=== PATIENT | female | born 1985 | race Caucasian/White ===

== ENCOUNTER → 2017-05-07 15:06 | Outpatient (CLI) | payer MEDICAID, SELFPAY ==
[2017-05-07 20:05] LABS: Chlamydia Trachomatis by PCR Negative (Negative); Neisserai gonorrhoeae by PCR Negative (Negative); Probe Check PASS; Sample Adequacy Control PASS; Specimen Processing Control PASS
== END ==
PROVIDERS: Family Provider Family Medicine; PCP Family Medicine; Visit Provider Obstetrics & Gynecology
DX: Z11.3 Encounter for screening for infections with a predominantly sexual mode of transmission (principal)
CPT/HCPCS: 87086; 87088; 87491; 87591

== ENCOUNTER 2017-05-08 19:09 | Emergency (ER) | payer MEDICAID, SELFPAY ==
[2017-05-08 19:09] VITALS: BP 131/93; PULSE 94; RESP 16; TEMP 37.1; O2SAT 97; BMI 23.6
--- NOTE | 2017-05-08 20:26 | US_ITS ---
STUDY: RENAL ULTRASOUND - COMPLETE REASON FOR EXAM: Female, 32 years old. Left flank pain and history of stones TECHNIQUE: Ultrasound evaluation of the kidneys was performed with real-time and static manley-scale imaging. COMPARISON: June 15, 2014 CT scan abdomen and pelvis. FINDINGS: RIGHT KIDNEY: Normal location of the right kidney, which is normal in size. The right kidney measures 10.8 x 5.4 x 4.3 cm. There is a normal cortex of the right kidney. The renal cortex measures 0.9 cm. There is no right renal mass or cyst. There is a lower pole calcification measuring 3.5 mm image #8. On image #5 there is a suggestion of punctate stones. There is trace right side pelviectasis. LEFT KIDNEY: Normal location of the left kidney, which is normal in size. The left kidney measures 0.9 cm. There is a normal cortex of the left kidney. The renal cortex measures cm. There is no left renal mass or cyst. There are no left renal calculi. There is no left hydronephrosis. BLADDER: The bladder is empty. US/Kidney and Bladder IMPRESSION: Trace right-sided pelviectasis visualized punctate stone in 3.5 mm stone right kidney. No evidence of left-sided hydronephrosis. Electronically Signed: Kat Meehan MD at 22:40 EST Tel , Service support ,
[2017-05-08 20:33] LABS: Color, Urine Yellow (Yellow); Glucose, Dipstick Normal (Normal); Leukocyte Esterase-Dipstick 25 /ul (Negative); Nitrite-Dipstick Negative (Negative); Occult Blood-Urine 25 /ul (Negative); Protein-Dipstick 30 mg/dl (Negative); Urine Bilirubin Dipstick Negative (Negative); Urine Clarity Cloudy (Clear); Urine Urobilinogen 1 mg/dl (Normal)
[2017-05-08 20:36] LABS: Ketone-Dipstick 150 mg/dl (Negative)
[2017-05-08 20:41] LABS: Mucous, Urine 1+ /hpf (<or=2+)
[2017-05-08 20:42] LABS: Red Blood Cells-Urine 0-5 SEEN /hpf (0-5); White Blood Cells 5-10 SEEN /hpf (0-5)
[2017-05-08 20:43] LABS: Squamous Epithelial Cells - UA 5-10 SEEN /hpf (5-10)
[2017-05-08 20:44] LABS: Bacteria RARE /hpf (None Seen)
[2017-05-08] MEDS: Ondansetron 4 MG/2 ML Vial IV (20:58)
[2017-05-08] MEDS: 0.9% Normal Saline 1,000 ML 999 ML IV (20:58)
[2017-05-08 21:09] LABS: Absolute Lymphocyte Count 1.86 X10^3/ul (0.83-4.51); Absolute Neutrophil Count 12.5 X10^3/uL (2.0-7.7); Basophil# 0.03 X10^3/uL; Basophil% 0.2 % (0-1); Eosinophil# 0.14 X10^3/uL; Eosinophils% 0.9 % (0-5); Hematocrit 41.2 % (37-47); Hemoglobin 13.9 g/dl (12.0-15.0); Lymphocyte # 1.86 X10^3/ul (4.0); Lymphocyte % 11.9 % (19-41); Mean Corp Hgb Conc 33.7 g/gl (32-36); Mean Corpuscular Hgb 31.2 pg (27.0-32.0); Mean Corpuscular Volume 92.6 fL (81-99); Mean Platelet Vol. 10.8 fl (6.2-12.0); Monocyte# 1.11 X10^3/uL; Monocyte% 7.1 % (0-10); Neutrophil # 12.49 X10^3/uL (2.7-7.7); Neutrophil % 79.8 % (47-70); POSITIVE COUNT NO; POSITIVE DIFFERENTIAL NO; POSITIVE MORPHOLOGY NO; Platelet Count 284 K/mm3 (150-450); RBC Distribution Width SD 43.7 fl (35.1-43.9); Red Blood Count 4.45 M/mm3 (4.2-5.4); White Blood Count 15.7 K/mm3 (4.4-11.0)
[2017-05-08 21:21] LABS: Anion Gap 9 (5-15); BUN 11 mg/dL (7-18); BUN/Creat Ratio 18.8 RATIO (10-20); Chloride 107 mmol/L (98-107); Creatinine, Serum 0.59 mg/dL (0.55-1.02); EST Glomerular Filtration Rate 128 mL/min (>60); Est Glom Filt Rate - Afr Amer 155 mL/min (>60); Estimated Creatinine Clearance 145.71 ml/min; Glucose 90 mg/dL (74-106); Potassium 3.6 mmol/L (3.5-5.1); Sodium Level 138 mmol/L (136-145)
[2017-05-08 23:09] VITALS: BP 100/62; PULSE 65; RESP 16
--- NOTE | 2017-05-09 00:10 | ED.VISSUMM ---
- ER Visit Summary Date of Service: 05/09/17 Chief Complaint: Dysuria, urinary frequency History of Present Illness: The patient is a 32 F presenting with dysuria and urinary frequency. This has been ongoing for 5 days. She saw her COMPUTER [employer] SOFTWARE ENGINEER yesterday and was put on Macrobid. She is currently 6 weeks . She denies vaginal bleeding. She has left flank and suprapubic pain. She is AB 3. She has a history of kidney stones and has been seen by Dr. Whitmore. Physical Examination: Vitals are stable. Patient is afebrile. Alert no acute distress. HEENT exam is unremarkable. Lungs are clear and equal bilaterally. Heart is regular rate and rhythm. Abdomen is soft nontender nondistended. No rebound or guarding. Back: mild left CVA tenderness Extremities are unremarkable. Skin is warm and dry. Remainder of exam is unremarkable. Emergency Department Course and Treatment: Patient was given IV fluids, morphine, Zofran. CBC shows a white count of 15.7. Chemistries unremarkable. Urinalysis shows 5-10 white blood cells, 0-5 red blood cells. Urine culture was sent. Her pain is improved following medications. Discussed risk of radiation of CT scan and opted to do a renal ultrasound. This shows a trace right-sided pelviectasis, punctate stone right kidney, no left hydronephrosis. Her pain is mainly in the left flank. Discussed with Dr. Whitmore and Dr. Ortiz. She will be given a prescription for pyridium and advised to continue her antibiotics. She will be seen for outpatient follow-up. She is advised to return to ED if she has any worsening complaints. Disposition: Discharge home Impression: UTI, This note was generated with EPS dictation software. It may contain incorrect words, spelling, and punctuation that were not noted in review of the chart prior to signing ED Disposition - Plan for ED Patient: Chief Complaint: Complaint Instructions: ED UTI Cystitis Female Prescriptions: Phenazopyridine HCl [Pyridium] 200 mg PO BID PRN PRN #10 tablet PRN Reason: Pain Referrals: Maurice Whitmore MD [STAFF PHYSICIAN] - William Ortiz MD [STAFF PHYSICIAN] - Jim Ray MD [Primary Care Provider] -
--- NOTE | 2017-05-09 00:14 | ED.DCSUM_ITS ---
- ER Visit Summary Date of Service: 05/09/17 Chief Complaint: Dysuria, urinary frequency History of Present Illness: The patient is a 32 F presenting with dysuria and urinary frequency. This has been ongoing for 5 days. She saw her SUPER[employer]CH[employer] yesterday and was put on Macrobid. She is currently 6 weeks . She denies vaginal bleeding. She has left flank and suprapubic pain. She is AB 3. She has a history of kidney stones and has been seen by Dr. Whitmore. Physical Examination: Vitals are stable. Patient is afebrile. Alert no acute distress. HEENT exam is unremarkable. Lungs are clear and equal bilaterally. Heart is regular rate and rhythm. Abdomen is soft nontender nondistended. No rebound or guarding. Back: mild left CVA tenderness Extremities are unremarkable. Skin is warm and dry. Remainder of exam is unremarkable. Emergency Department Course and Treatment: Patient was given IV fluids, morphine , Zofran. CBC shows a white count of 15.7. Chemistries unremarkable. Urinalysis shows 5-10 white blood cells, 0-5 red blood cells. Urine culture was sent. Her pain is improved following medications. Discussed risk of radiation of CT scan and opted to do a renal ultrasound. This shows a trace right-sided pelviectasis, punctate stone right kidney, no left hydronephrosis. Her pain is mainly in the left flank. Discussed with Dr. Whitmore and Dr. Ortiz. She will be given a prescription for pyridium and advised to continue her antibiotics. She will be seen for outpatient follow-up. She is advised to return to ED if she has any worsening complaints. Disposition: Discharge home Impression: UTI, This note was generated with Ezetap dictation software. It may contain incorrect words, spelling, and punctuation that were not noted in review of the chart prior to signing ED Disposition - Plan for ED Patient: Chief Complaint: Complaint Instructions: ED UTI Cystitis Female Prescriptions: Phenazopyridine HCl [Pyridium] 200 mg PO BID PRN PRN #10 tablet PRN Reason: Pain Referrals: Maurice Whitmore MD [STAFF PHYSICIAN] - William Ortiz MD [STAFF PHYSICIAN] - Jim Ray MD [Primary Care Provider] -
--- NOTE | 2017-05-09 00:14 | ED.DEP ---
ED Disposition - Plan for ED Patient: Chief Complaint: Complaint Instructions: ED UTI Cystitis Female Prescriptions: Phenazopyridine HCl [Pyridium] 200 mg PO BID PRN PRN #10 tablet PRN Reason: Pain Referrals: Jim Ray MD [Primary Care Provider] - William Ortiz MD [STAFF PHYSICIAN] - Maurice Whitmore MD [STAFF PHYSICIAN] -
[2017-05-09 00:30] VITALS: BP 119/55; PULSE 61; RESP 16
== END 2017-05-09 00:30 | disposition home or self-care (01) ==
LOC: ED 20:02
PROVIDERS: Emergency Provider Emergency Medicine; Family Provider Family Medicine; PCP Family Medicine
DX: O23.41 Unspecified infection of urinary tract in pregnancy, first trimester (principal); O99.331 Smoking (tobacco) complicating pregnancy, first trimester; O26.891 Other specified pregnancy related conditions, first trimester; N20.0 Calculus of kidney; Z87.442 Personal history of urinary calculi; Z3A.01 Less than 8 weeks gestation of pregnancy
CPT/HCPCS: 76770; 80048; 81001; 85025; 87086; 87088; 96361; 96374; 96375; 96376; 99283; A4216; J2405

== ENCOUNTER → 2017-05-27 11:29 | Outpatient (CLI) | payer MEDICAID, SELFPAY ==
[2017-05-27 12:26] LABS: Absolute Neutrophil Count 8.4 X10^3/uL (2.0-7.7); Basophil# 0.02 X10^3/uL; Basophil% 0.2 % (0-1); Eosinophil# 0.09 X10^3/uL; Eosinophils% 0.7 % (0-5); Hematocrit 40.2 % (37-47); Hemoglobin 13.5 g/dl (12.0-15.0); Lymphocyte % 25.1 % (19-41); Mean Corp Hgb Conc 33.6 g/gl (32-36); Mean Corpuscular Volume 92.4 fL (81-99); Mean Platelet Vol. 11.5 fl (6.2-12.0); Monocyte# 0.73 X10^3/uL; Monocyte% 5.9 % (0-10); Neutrophil # 8.41 X10^3/uL (2.7-7.7); Neutrophil % 67.9 % (47-70); Platelet Count 297 K/mm3 (150-450); RBC Distribution Width CV 13.1 % (11.6-14.6); RBC Distribution Width SD 44.4 fl (35.1-43.9); Red Blood Count 4.35 M/mm3 (4.2-5.4); White Blood Count 12.4 K/mm3 (4.4-11.0)
[2017-05-27 12:29] LABS: POSITIVE COUNT NO; POSITIVE DIFFERENTIAL NO; POSITIVE MORPHOLOGY NO
[2017-05-27 12:43] LABS: Thyroid Stim Hormone (TSH) 1.25 uIU/mL (0.358-3.74)
[2017-05-27 12:45] LABS: Color, Urine Yellow (Yellow); Glucose, Dipstick Normal (Normal); Ketone-Dipstick 15 mg/dl (Negative); Leukocyte Esterase-Dipstick Negative /ul (Negative); Nitrite-Dipstick Negative (Negative); Occult Blood-Urine 10 /ul (Negative); Protein-Dipstick Negative (Negative); Specific Gravity, Urine 1.015 (1.002-1.030); Urine Bilirubin Dipstick Negative (Negative); Urine Clarity Cloudy (Clear); Urine Urobilinogen Normal (Normal)
[2017-05-27 12:46] LABS: COTININE Drug Screen Positive (<200 ng/mL)
[2017-05-27 13:22] LABS: HIV - WCH Non-Reactive (Nonreactive); Rubella IgG 181.4 IU/mL
[2017-05-27 14:38] LABS: Amphetamine Urine VISTA NEGATIVE (<1000 ng/mL); Barbiturate Urine VISTA NEGATIVE (< 200 ng/mL); Benzodiazepine Urine VISTA NEGATIVE (< 200 ng/mL); Cocaine Urine VISTA NEGATIVE (< 300 ng/mL); Ecstacy Urine VISTA NEGATIVE (< 500 ng/mL); Methadone Urine VISTA NEGATIVE (< 300 ng/mL); PCP Urine VISTA NEGATIVE (< 25 ng/mL); THC Urine VISTA POSITIVE (< 50 ng/mL); Vista UDS pH Range 8
[2017-05-28 09:27] LABS: HEPATITIS B SURFACE AG Negative (Negative); Hep C Antibodies 0.2 s/co ratio (0.0-0.9)
[2017-05-29 02:54] LABS: Prenatal RPR NONREACTIVE (NONREACTIVE)
== END ==
PROVIDERS: Family Provider Family Medicine; PCP Family Medicine; Visit Provider Obstetrics & Gynecology
DX: Z34.81 Encounter for supervision of other normal pregnancy, first trimester (principal)
CPT/HCPCS: 36415; 80307; 81002; 84443; 85025; 86703; 86762; 86803; 87340

== ENCOUNTER → 2017-10-07 10:48 | Outpatient (CLI) | payer MEDICAID, SELFPAY ==
[2017-10-07 12:09] LABS: Hematocrit 34.2 % (37-47); Hemoglobin 11.2 g/dl (12.0-15.0); Mean Corp Hgb Conc 32.7 g/gl (32-36); Mean Corpuscular Hgb 30.5 pg (27.0-32.0); Mean Corpuscular Volume 93.2 fL (81-99); Mean Platelet Vol. 11.4 fl (6.2-12.0); Platelet Count 334 K/mm3 (150-450); RBC Distribution Width CV 13.2 % (11.6-14.6); RBC Distribution Width SD 44.7 fl (35.1-43.9); Red Blood Count 3.67 M/mm3 (4.2-5.4); White Blood Count 14.9 K/mm3 (4.4-11.0)
[2017-10-07 12:10] LABS: Scan Indicated on CBC? Y/N NO
[2017-10-07 12:12] LABS: Glucose Challenge Gest 1H 50g 164 mg/dL (70-140)
== END ==
PROVIDERS: Visit Provider Obstetrics & Gynecology
DX: Z34.83 Encounter for supervision of other normal pregnancy, third trimester (principal)
CPT/HCPCS: 36415; 82950; 85027

== ENCOUNTER → 2017-10-13 09:36 | Outpatient (CLI) | payer MEDICAID, SELFPAY ==
[2017-10-13 10:57] LABS: Glucose GTT-Gestation. Fasting 80 mg/dL (<105)
[2017-10-13 12:25] LABS: Glucose GTT-Gestational 1 Hr 173 mg/dL (<190)
[2017-10-13 13:25] LABS: Glucose GTT-Gestational 2 Hr 166 mg/dL (<165)
[2017-10-13 14:27] LABS: Glucose GTT-Gestational 3 Hr 119 L (<145)
== END ==
PROVIDERS: Family Provider Family Medicine; PCP Family Medicine; Visit Provider Obstetrics & Gynecology
DX: O24.912 Unspecified diabetes mellitus in pregnancy, second trimester (principal); Z3A.00 Weeks of gestation of pregnancy not specified
CPT/HCPCS: 36415; 82951; 82952

== ENCOUNTER → 2017-12-02 16:11 | Outpatient (CLI) | payer MEDICAID, SELFPAY ==
[2017-12-02 17:29] LABS: Group B Strep DNA By PCR Negative (Negative); Internal Control PASS; Probe Check PASS; Specimen Processing Control PASS
== END ==
PROVIDERS: Visit Provider Obstetrics & Gynecology
DX: Z36.85 Encounter for antenatal screening for Streptococcus B (principal)
CPT/HCPCS: 87081; 87653

== ENCOUNTER 2017-12-17 09:44 | Inpatient (IN) | payer MEDICAID, SELFPAY ==
[2017-12-15 09:29] VITALS: BMI 29.0
--- NOTE | 2017-12-15 09:34 | NURSING ---
Pt takes CBD oil daily for migraines. Chemically related to marijuana
[2017-12-17] VITALS (18 sets, daily range): BP systolic 100–128; BP diastolic 46–74; PULSE 61–93; RESP 14–18; TEMP 36.1–37; O2SAT 95–99; BMI 28.8
[2017-12-17] MEDS: Lactated Ringers 1,000 ML 999 ML IV (10:15)
[2017-12-17 11:06] LABS: Absolute Lymphocyte Count 2.57 X10^3/ul (0.83-4.51); Absolute Neutrophil Count 9.9 X10^3/uL (2.0-7.7); Basophil# 0.04 X10^3/uL; Basophil% 0.3 % (0-1); Eosinophil# 0.18 X10^3/uL; Eosinophils% 1.3 % (0-5); Hematocrit 37.1 % (37-47); Hemoglobin 12.4 g/dl (12.0-15.0); Lymphocyte # 2.57 X10^3/ul (4.0); Lymphocyte % 18.6 % (19-41); Mean Corp Hgb Conc 33.4 g/gl (32-36); Mean Corpuscular Hgb 30.5 pg (27.0-32.0); Mean Corpuscular Volume 91.4 fL (81-99); Mean Platelet Vol. 11.6 fl (6.2-12.0); Monocyte% 7.2 % (0-10); Neutrophil # 9.94 X10^3/uL (2.7-7.7); Neutrophil % 72.1 % (47-70); Platelet Count 318 K/mm3 (150-450); RBC Distribution Width CV 13.9 % (11.6-14.6); RBC Distribution Width SD 45.8 fl (35.1-43.9); Red Blood Count 4.06 M/mm3 (4.2-5.4); White Blood Count 13.8 K/mm3 (4.4-11.0)
[2017-12-17 11:11] LABS: POSITIVE COUNT NO; POSITIVE DIFFERENTIAL NO; POSITIVE MORPHOLOGY NO
[2017-12-17] MEDS: Lactated Ringers 1,000 ML 150 ML IV (11:18)
[2017-12-17] MEDS: Sodium Citrate/Citric Acid 30 ML UDC PO (11:50)
[2017-12-17] MEDS: Cefazolin 2 GM in 0.9% Normal Saline 100 ML IV (11:50)
--- NOTE | 2017-12-17 12:10 | PCM.OP.BLANK ---
Operative Report Date of Procedure: 12/17/17 Surgeon: William Ortiz MD, FACOG [employer] Intern[employer]: STACY Al; STACY Martinez Anesthesia: Erwin Green CRNA Anesthesia: Spinal with Duramorph Pre-op Diagnosis: Prior Section And Desires Permanent Sterilization Post-Op Diagnosis: Prior Section And Desires Permanent Sterilization Procedure: Repeat Low Transverse Cervical Caesarean Section And Bilateral Tubal Occlusion with Filshie Clips Findings: Viable female infant with Apgars of 9/10 in occiput anterior presentation with clear amniotic fluid and normal three-vessel placenta. Cord around the neck ?1 tight. Indication: This is a 32-year-old who presents for a repeat at 39 weeks gestation. care has otherwise been uneventful. The patient has been counseled regarding the risk and indications of this procedure including the possibility of bleeding infection and injury to surrounding structures such as bowel bladder. All questions were answered. Procedure: Patient was taken to the operating room where after spinal anesthesia was placed, the patient was prepped and draped in usual sterile fashion and a Asher catheter was placed. The abdomen was entered through the patient's prior Pfannenstiel incision and peritoneum was entered bluntly. After developing a bladder flap on the lower uterine segment a low transverse incision was made on the uterus and head was easily delivered onto the operative field the nose mouth and oropharynx were bulb suctioned. Subsequently a viable female infant was born with Apgars of 9/10. The infant was noted to cry move all extremities vigorously on the operative field. The umbilical cord was doubly clamped and ligated and handed to the nursery personnel who were present for the delivery. Placenta was delivered and noted to be 3 vessels and normal. Uterus was exteriorized and remaining placental tissue was removed. The uterus was then closed in 2 layers first with running locked 0 Vicryl suture followed by a second imbricating layer with 0 Vicryl suture. 0 Vicryl suture was then used in a horizontal mattress interrupted fashion to affect final hemostasis of the uterine incision line. Normal fallopian tubes and ovaries were visualized and Filshie clips were placed approximately 1-2 cm from the fundus on each tube; the uterus was returned to the pelvis. Hemostasis was noted and rectus abdominis muscles were reapproximated in the midline with interrupted Number 0 Vicryl suture in a horizontal mattress fashion. Fascia was closed with running Number 1 PDS Strata fix suture. Subcutaneous tissue was irrigated with copious amouts of saline solution and then closed with running 3-0 Vicryl suture. Skin was closed with 4-0 monocryl suture in a running subcuticular fashion. Steri strips, telfa, and tape were placed across the incision. The patient tolerated the procedure well and was taken to the recovery room in satisfactory condition. Sponge, needle, and instrument counts were all reportedly correct. EBL was less than 500 cc. Ancef 2 gms IV was given prior to the procedure. Spicemen to Pathology: None Complications: None
--- NOTE | 2017-12-17 12:11 | DCINST_ITS ---
Discharge Diet: No Restrictions Discharge Activity: May not drive while taking narcotic pain medications., May Shower, May Take a Tub Bath May resume sexual activity in: 4-6 weeks Lifting Restrictions: 20 pounds Additional Activity Instructions:: Nothing in the vagina for 4-6 weeks. You may return to work/school in 6 weeks. Call your doctor if your incision/area has: Continuous Slow Oozing, Sudden Increased Bleeding, Increased Pain/ Swelling, Increased Redness, Foul Smelling Discharge Call your doctor if you observe: Fever of 101 or Higher, Inability to urinate, Inability to have a bowel movement, Using more than one pad per hour Additional Instructions: If you experience any of the following, contact your healthcare provider. * Bleeding that soaks a pad every hour for 2 hours * Unrelieved incision or abdominal pain * Swelling, redness, discharge or bleeding from your incision or episiotomy site * Your incision begins to separate * Problems urinating (including inability to urinate or burning while urinating) . * Visual changes * Severe headache * Flu-like symptoms * Pain or redness in one of both of your breasts * Pain, warmth, tenderness or swelling in your legs, especially the calf area * Frequent nausea and vomiting * Symptoms of depression or anxiety If you experience any of the following, call 911 or go to the nearest Emergency Room. * Chest pain * Problems breathing * Seizure activity * Partial or complete paralysis of a body part, slurred speech, weakness or drooping of the face, or a sudden inability to walk or hold your balance Allergies/Adverse Reactions: Allergies No Known Allergies Allergy (Verified 12/17/17 10:36) Medications to take at Discharge Pnv95/Ferrous Fumarate/FA [ Formula] 1 each PO DAILY 05/08/17 Docusate Sodium [Colace] 100 mg PO BID PRN PRN #60 cap 12/17/17 Oxycodone [Oxyir] 5 mg PO Q6H PRN PRN 7 Days #20 tab 12/17/17 The following prescriptions were given: Oxycodone [Oxyir] 5 mg PO Q6H PRN PRN 7 Days #20 tab PRN Reason: Severe Pain (-01/06) Docusate Sodium [Colace] 100 mg PO BID PRN PRN #60 cap PRN Reason: Constipation Follow-Up: Call to make an appointment with your doctor for an incision check in 1-2 weeks. You will also need a 6 week post- follow up appointment. Test results from this visit will be discussed in further detail at your follow- up appointment, if applicable. Please Follow Up With: William Ortiz MD - [phone] When: Call to make an appointment for an incision check in 2 weeks. Primary Care Physician: Jim Ray MD [Primary Care Provider] -
[2017-12-17] MEDS: Oxytocin 30 units/NS 500 ml 30 UNITS/500 ML IV.SOLN 167 UNITS IV (12:25)
[2017-12-17] MEDS: Acetaminophen 500 MG Tablet 1000 MG PO (15:37)
[2017-12-17] MEDS: DiphenhydrAMINE 25 MG Capsule PO (16:49)
[2017-12-17] MEDS: Lactated Ringers 1,000 ML 100 ML IV (18:23)
[2017-12-17] MEDS: Ketorolac 30 MG/ML Syringe IV (18:23)
[2017-12-17] MEDS: Cefazolin 1 GM/50 ML BAG IV (20:25)
[2017-12-18] VITALS (9 sets, daily range): BP systolic 95–123; BP diastolic 50–72; PULSE 71–97; RESP 16–18; TEMP 36.2–37.3; O2SAT 96–99
[2017-12-18] MEDS: 0.9% Saline Lock 10 ML Syringe IV ×3 (00:12→18:29)
[2017-12-18] MEDS: Ketorolac 30 MG/ML Syringe IV ×3 (00:12→12:02)
[2017-12-18] MEDS: Cefazolin 1 GM/50 ML BAG IV (04:04)
[2017-12-18] MEDS: Lactated Ringers 1,000 ML 100 ML IV (04:04)
[2017-12-18 04:30] LABS: Hematocrit 32.1 % (37-47); Hemoglobin 10.7 g/dl (12.0-15.0); Mean Corp Hgb Conc 33.3 g/gl (32-36); Mean Corpuscular Hgb 30.7 pg (27.0-32.0); Mean Corpuscular Volume 92.2 fL (81-99); Mean Platelet Vol. 10.8 fl (6.2-12.0); Platelet Count 252 K/mm3 (150-450); RBC Distribution Width CV 14.1 % (11.6-14.6); RBC Distribution Width SD 46.5 fl (35.1-43.9); Red Blood Count 3.48 M/mm3 (4.2-5.4); Scan Indicated on CBC? Y/N NO; White Blood Count 14.7 K/mm3 (4.4-11.0)
--- NOTE | 2017-12-18 10:45 | PCM.PN.OB ---
Subjective: Patient without complaints. Tolerating diet well. Positive flatus. Pain well controlled. - Physical Exam Vital Signs AF, VSS Temp Pulse Resp BP Pulse Ox 98.3 F 74 18 105/60 98 12/18/17 08:30 12/18/17 08:30 12/18/17 08:30 12/18/17 08:30 12/18/17 06:39 Oxygen Delivery Method Room Air Weight: 195 lb 8.8 oz Body Mass Index (BMI) 28.8 Intake and Output for Last 24 Hours 12/16/17 12/17/17 12/18/17 23:59 23:59 23:59 Intake Total 2207 / 2207 Output Total 1050 / 1050 2500 / 2500 Balance 1157 / 1157 -2500 / -2500 Laboratory Tests Past 24 Hrs 12/17/17 12/17/17 12/18/17 10:15 10:15 04:10 WBC 13.8 H 14.7 H RBC 4.06 L 3.48 L Hgb 12.4 10.7 L Hct 37.1 32.1 L MCV 91.4 92.2 MCH 30.5 30.7 MCHC 33.4 33.3 RDW 13.9 14.1 RDW Differential 45.8 H 46.5 H Plt Count 318 252 MPV 11.6 10.8 Immature Gran % (Auto) 0.500 Neut % (Auto) 72.1 H Lymph % (Auto) 18.6 L [place] % (Auto) 7.2 Eos % (Auto) 1.3 Baso % (Auto) 0.3 Absolute Neuts (auto) 9.9 H Absolute Lymphs (auto) 2.57 Total Counted Not Reportable Blood Type A POSITIVE Antibody Screen NEGATIVE Wound is clean, dry, intact. Good urine output. Hemoglobin okay. Medical Necessity - Tobacco Use Smoking Status: Former smoker Assessment/Plan Doing well. Continuing present care. Anticipate release tomorrow if good progress continues.
[2017-12-18] MEDS: oxyCODONE 5 MG Tablet PO ×4 (13:54→23:00)
[2017-12-18] MEDS: Senna/Docusate Sodium 1 Tablet PO (13:54)
[2017-12-18] MEDS: Ibuprofen 600 MG Tablet PO (18:37)
[2017-12-19 02:00] VITALS: BP 121/61; PULSE 84; RESP 18; TEMP 36.9
[2017-12-19] MEDS: Ibuprofen 600 MG Tablet PO ×3 (02:23→19:32)
[2017-12-19] MEDS: oxyCODONE 5 MG Tablet PO ×4 (04:04→20:08)
[2017-12-19 08:00] VITALS: BP 126/54; PULSE 83; RESP 16; TEMP 36.7
--- NOTE | 2017-12-19 08:25 | PCM.PN.OB ---
Subjective: POD#2 Repeat C section Nursing, but baby is not latching on well. Would like to stay until tomorrow for additional care and nursing assistance. Pain control adequate. - Physical Exam General: Alert, Oriented x3, Cooperative, No apparent distress HEENT: Atraumatic Neck: Supple Abdomen: Soft - Fundus firm NT at 2 cm inferior to umbilicus Skin: Incision - Steristrips CDI. no shadow drainage. Neurological: Cranial nerves II-XII grossly intact Psych/Mental Status: Normal Affect Vital Signs Temp Pulse Resp BP Pulse Ox 98.5 F 84 18 121/61 H 99 12/19/17 02:00 12/19/17 02:00 12/19/17 02:00 12/19/17 02:00 12/18/17 11:00 Oxygen Delivery Method Room Air Weight: 88.7 kg Body Mass Index (BMI) 28.8 Intake and Output for Last 24 Hours 12/17/12/18/17 12/19/17 23:59 23:59 23:59 Intake Total 2207 / 2207 600 / 600 Output Total 1050 / 1050 6100 / 6100 Balance 1157 / 1157 -5500 / -5500 Medical Necessity - Tobacco Use Smoking Status: Former smoker Assessment/Plan POD#2 Repeat C/S Stable postop. Continue care and assistance prn with nursing , latching.
[2017-12-19] MEDS: Senna/Docusate Sodium 1 Tablet PO (11:36)
[2017-12-19 14:30] VITALS: BP 103/50; PULSE 80; RESP 16; TEMP 36.7
[2017-12-19 19:38] VITALS: BP 110/60; PULSE 93; RESP 20; TEMP 37.1; O2SAT 98
[2017-12-20] MEDS: oxyCODONE 5 MG Tablet PO ×3 (00:23→10:54)
[2017-12-20 01:34] VITALS: BP 99/49; PULSE 68; RESP 18; TEMP 36.4; O2SAT 96
[2017-12-20] MEDS: Ibuprofen 600 MG Tablet PO ×2 (05:14→13:02)
[2017-12-20 08:00] VITALS: BP 106/54; PULSE 85; RESP 18; TEMP 36.2; O2SAT 96
[2017-12-20] MEDS: Senna/Docusate Sodium 1 Tablet PO (08:15)
--- NOTE | 2017-12-20 08:52 | PCM.PN.OB ---
Subjective: POD#3 repeat C/S Remains concerned about baby's nursing, though some improvement noted. May want to stay until POD#4. Pain control adequate. No concerns otherwise. Objective: Sitting in bed, sermirecumbent, holding sleeping baby. Nipple silva at bedside. - Physical Exam General: Alert, Oriented x3, Cooperative, No apparent distress HEENT: Atraumatic Oral: Moist Mucosa Neck: Supple Abdomen: Soft - Fundus firm NT approx 3 cm inferior to umbilicus Skin: Incision - Open to air, steristrips off. Incision CDI. Psych/Mental Status: Normal Affect Vital Signs Temp Pulse Resp BP Pulse Ox 97.1 F L 85 18 106/54 L 96 12/20/ 08:00 12/20/17 08:00 12/20/17 08:00 12/20/17 08:00 12/20/17 08:00 Oxygen Delivery Method Room Air Weight: 88.7 kg Body Mass Index (BMI) 28.8 Intake and Output for Last 24 Hours 12/18/12/19/12/20/17 23:59 23:59 23:59 Intake Total 600 / 600 Output Total 6100 / 6100 Balance -5500 / -5500 Medical Necessity - Tobacco Use Smoking Status: Former smoker Assessment/Plan POD#3 Repeat C/S Stable postop. Continue care and assistance prn with nursing infant, latching. Still considering dischg today or on POD#4, depending on how baby is nursing.
--- NOTE | 2017-12-20 08:58 | PCM.DC.SUM ---
Discharge Date and Diagnosis Date of Admission: 12/17/17 - 39 wk prior C/S Sterilization request Date of Discharge: 12/20/17 - s/p repeat C/S and BTO (filshie clips) - Secondary Discharge Diagnosis Chronic Problems History of nephrolithiasis (Chronic) Hospital Course and Treatment Operations: - - Repeat C/S and bilateral tubal occlusion (Filshie clips) Summary of Care Provided: The patient is a 32 year old female at 39 wk EGA with h/o prior C/S. Presents for repeat C/S and bilateral tubal ligation. Procedure uncomplicated with EBL < 500 cc. Delivered coley female Ap 9/10 Cord around the neck times one, tight. Postoperative course uneventful other than maternal concerns for infant's nursing. Preop hgb 13.1g/dl. and Postop hgb 11.2 g/dl. Discharge home POD#3 pending infant nursing well. RTO in 2 wk for postop follow up appt. Discharge Diet: No Restrictions Discharge Activity: May not drive while taking narcotic pain medications., May Shower, May Take a Tub Bath May resume sexual activity in: 4-6 weeks Additional Activity Instructions:: Nothing in the vagina for 4-6 weeks. You may return to work/school in 6 weeks. Call your doctor if your incision/area has: Continuous Slow Oozing, Sudden Increased Bleeding, Increased Pain/ Swelling, Increased Redness, Foul Smelling Discharge Call your doctor if you observe: Fever of 101 or Higher, Inability to urinate, Inability to have a bowel movement, Using more than one pad per hour Home Medications: Medications to take at Discharge Pnv95/Ferrous Fumarate/FA [ Formula] 1 each PO DAILY 05/08/17 Docusate Sodium [Colace] 100 mg PO BID PRN PRN #60 cap 12/17/17 Oxycodone [Oxyir] 5 mg PO Q6H PRN PRN 7 Days #20 tab 12/17/17 Following Prescrptions Were Given to Patient: Oxycodone [Oxyir] 5 mg PO Q6H PRN PRN 7 Days #20 tab PRN Reason: Severe Pain (6-10/10) Docusate Sodium [Colace] 100 mg PO BID PRN PRN #60 cap PRN Reason: Constipation Primary Care Physician: Jim Ray MD [Primary Care Provider] - Please Follow Up With: William Ortiz MD - [phone] When: Call to make an appointment for an incision check in 2 weeks. Medical Necessity - Tobacco Use Smoking Status: Former smoker Meaningful Use Info Meaningful Use Diagnoses (Choose all that apply): None applicable
--- NOTE | 2017-12-20 09:02 | DS.PCM_ITS ---
Discharge Date and Diagnosis Date of Admission: 12/17/17 - 39 wk prior C/S Sterilization request Date of Discharge: 12/20/17 - s/p repeat C/S and BTO (filshie clips) - Secondary Discharge Diagnosis Chronic Problems History of nephrolithiasis (Chronic) Hospital Course and Treatment Operations: - - Repeat C/S and bilateral tubal occlusion (Filshie clips) Summary of Care Provided: The patient is a 32 year old female at 39 wk EGA with h/o prior C/S. Presents for repeat C/S and bilateral tubal ligation. Procedure uncomplicated with EBL < 500 cc. Delivered coley female Ap 9/10 Cord around the neck times one , tight. Postoperative course uneventful other than maternal concerns for 's nursing. Preop hgb 13.1g/dl. and Postop hgb 11.2 g/dl. Discharge home POD#3 pending nursing well. RTO in 2 wk for postop follow up appt. Discharge Diet: No Restrictions Discharge Activity: May not drive while taking narcotic pain medications., May Shower, May Take a Tub Bath May resume sexual activity in: 4-6 weeks Additional Activity Instructions:: Nothing in the vagina for 4-6 weeks. You may return to work/school in 6 weeks. Call your doctor if your incision/area has: Continuous Slow Oozing, Sudden Increased Bleeding, Increased Pain/ Swelling, Increased Redness, Foul Smelling Discharge Call your doctor if you observe: Fever of 101 or Higher, Inability to urinate, Inability to have a bowel movement, Using more than one pad per hour Home Medications: Medications to take at Discharge Pnv95/Ferrous Fumarate/FA [ Formula] 1 each PO DAILY 05/08/17 Docusate Sodium [Colace] 100 mg PO BID PRN PRN #60 cap 12/17/17 Oxycodone [Oxyir] 5 mg PO Q6H PRN PRN 7 Days #20 tab 12/17/17 Following Prescrptions Were Given to Patient: Oxycodone [Oxyir] 5 mg PO Q6H PRN PRN 7 Days #20 tab PRN Reason: Severe Pain (6-10/10) Docusate Sodium [Colace] 100 mg PO BID PRN PRN #60 cap PRN Reason: Constipation Primary Care Physician: Jim Ray MD [Primary Care Provider] - Please Follow Up With: William Ortiz MD - [phone] When: Call to make an appointment for an incision check in 2 weeks. Medical Necessity - Tobacco Use Smoking Status: Former smoker Meaningful Use Info Meaningful Use Diagnoses (Choose all that apply): None applicable
[2017-12-20 13:00] VITALS: BP 133/66; PULSE 101; RESP 16; TEMP 37; O2SAT 97
== END 2017-12-20 13:15 | disposition home or self-care (01) | DRG 371 ==
PROVIDERS: Admitting Provider Obstetrics & Gynecology; Family Provider Family Medicine; PCP Family Medicine; Visit Provider Obstetrics & Gynecology
PROC: 10D00Z1 Extraction of Products of Conception, Low, Open Approach (ICD-10-PCS; CPT 59514; principal; 2017-12-17 11:45)
DX: O34.211 Maternal care for low transverse scar from previous cesarean delivery (principal); Z3A.39 39 weeks gestation of pregnancy; Z37.0 Single live birth; O69.1XX0 Labor and delivery complicated by cord around neck, with compression, not applicable or unspecified; Z87.891 Personal history of nicotine dependence
CPT/HCPCS: 85025; 85027; 86850; 86900; 99218; J7120; A4216; G0378

== ENCOUNTER 2017-12-21 13:05 | Outpatient (CLI) | payer MEDICAID, SELFPAY | END 2017-12-21 14:05 | disposition home or self-care (01) | LOC: WPOUT 13:07 → WP 13:08 | PROVIDERS: Family Provider Family Medicine; PCP Family Medicine; Visit Provider Obstetrics & Gynecology | DX: O92.79 Other disorders of lactation (principal) | CPT/HCPCS: 96152 ==

== ENCOUNTER → 2018-04-16 13:55 | Outpatient (CLI) | payer MEDICAID, SELFPAY ==
--- OUTSIDE RECORDS SUMMARY | 2018-06-21 03:45 | XMS RPT_ITS ---
:1985 Author Organization OHIP Care Team Providers Name Role Phone Natasha Velazquez Attending Unavailable Natasha Velazquez Referring Unavailable Cory, Jim Primary Care Unavailable William Ortiz Attending Unavailable Cory, Jim Primary Care Unavailable William Ortiz Admitting Unavailable Angel, William Attending Unavailable Angel, William Referring Unavailable Cory, Jim Primary Care Unavailable Angel, William Attending Unavailable Angel, William Attending Unavailable Angel, William Referring Unavailable Cory, Jim Primary Care Unavailable Angel, William Attending Unavailable Angel, William Attending Unavailable Cory, Jim Primary Care Unavailable Cory, Jim Primary Care Unavailable Winsome Herrera Attending Unavailable Angel, William Attending Unavailable William Ortiz Referring Unavailable Cory, Jim Primary Care Unavailable PROBLEMS PROBLEMS DATE TYPE CONDITION / CODE ATTENDING STATUS SOURCE 04/16/2018 Unknown R30.0 - Dysuria / Natasha Velazquez Active Yoel R30.0(ICD-10) [facility] Repository 12/28/2017 Unknown O92.79 - Other William Ortiz disorders of Community / Hospital O92.79(ICD-10) Repository 12/20/2017 Unknown G89.18 - Other acute William Ortiz postprocedural pain Community / G89.18(ICD-10) Hospital Repository 12/02/2017 Unknown Z36.85 - Encounter William Ortiz for [facility] screening for Hospital Streptococcus B / Repository Z36.85(ICD-10) 10/07/2017 Unknown Z34.83 - Encounter William Ortiz for supervision of Community other normal Hospital , third Repository trimester / Z34.83(ICD-10) PROCEDURES PROCEDURES No Procedure Records FoundRESULTS RESULTS Observed: 04/16/2018 Status: F Source: [facility] CULTURE, URINE 11:00 AM REPOSITORY Urine Culture ORGANISM 1: Presumptive E. coli [place] Count >100,000 Presumptive E. coli: REACTION Ampicillin $ 4 S Ampicillin/Sulbactam $ <=2 S Cefazolin $ <=4 S Cefepime $ <=0.12 S Ceftazidime *NF <=1 S Ceftriaxone $ <=0.25 S Ciprofloxacin $ <=0.25 S Ertapenim $$$ <=0.12 S ESBL NEG Gentamicin $ <=1 S Imipenem *NF <=0.25 S Levofloxacin $ <=0.12 S Nitrofurantoin $ <=16 S Piperacillin/Tazobactam $$ <=4 S Tobramycin $ <=1 S Trimethoprim/Sulfametho $ <=20 S (NF) indicates non-formulary drug at [facility]. Approval by Infectious Disease Specialist required before non-formulary drugs may be ordered and/or dispensed. Performed By: #### M100.0650 #### [facility] [address] [place], [address] DISCHARGE SUMMARY Observed: 12/20/2017 Status: F Source: [place] 9:02 AM REPOSITORY [facility] Medical Records Department [address] [place] [address] Discharge Summary 12/20/17 0858 MR#: [id number] Acct: [id number] Name: KARSON FAJARDO Rep #: [id number] : 1985 32 From: Natasha Velazquez MD PCP: Jim Ray MD Status: ADM IN [id number] Date and Diagnosis Date of Admission: 12/17/17 - 39 wk prior C/S Sterilization request Date of Discharge: 12/20/17 - s/p repeat C/S and BTO (filshie clips) - Secondary Discharge Diagnosis Chronic Problems History of nephrolithiasis (Chronic) Hospital Course and Treatment Operations: - - Repeat C/S and bilateral tubal occlusion (Filshie clips) Summary of Care Provided: The patient is a 32 year old female at 39 wk EGA with h/o prior C/S. Presents for repeat C/S and bilateral tubal ligation. Procedure uncomplicated with EBL < 500 cc. Delivered coley female Ap 9/10 Cord around the neck times one, tight. Postoperative course uneventful other than maternal concerns for 's nursing. Preop hgb 13.1g/dl. and Postop hgb 11.2 g/dl. Discharge home POD#3 pending nursing well. RTO in 2 wk for postop follow up appt. Discharge Diet: No Restrictions Discharge Activity: May not drive while taking narcotic pain medications., May Shower, May Take a Tub Bath May resume sexual activity in: 4-6 weeks Additional Activity Instructions:: Nothing in the vagina for 4-6 weeks. You may return to work/school in 6 weeks. Call your doctor if your incision/area has: Continuous Slow Oozing, Sudden Increased Bleeding, Increased Pain/ Swelling, Increased Redness, Foul Smelling Discharge Call your doctor if you observe: Fever of 101 or Higher, Inability to urinate, Inability to have a bowel movement, Using more than one pad per hour Home Medications: Medications to take at Discharge Pnv95/Ferrous Fumarate/FA [ Formula] 1 each PO DAILY 05/08/17 Docusate Sodium [Colace] 100 mg PO BID PRN PRN #60 cap 12/17/17 Oxycodone [Oxyir] 5 mg PO Q6H PRN PRN 7 Days #20 tab 12/17/17 Following Prescrptions Were Given to Patient: Oxycodone [Oxyir] 5 mg PO Q6H PRN PRN 7 Days #20 tab PRN Reason: Severe Pain (-01/06) Docusate Sodium [Colace] 100 mg PO BID PRN PRN #60 cap PRN Reason: Constipation Primary Care Physician: Jim Ray MD [Primary Care Provider] - Please Follow Up With: William Ortiz MD - [phone] When: Call to make an appointment for an incision check in 2 weeks. Medical Necessity - Tobacco Use Smoking Status: Former smoker Meaningful Use Info Meaningful Use Diagnoses (Choose all that apply): None applicable 12/20/17 0902 <Electronically signed by Natasha Velazquez MD> Date Natasha Velazquez MD Cosigner Signature (if applicable): Date CC: Natasha Velazquez MD; Jim Ray MD Signed CBC-COMPLETE BLOOD CNT Collected: 12/18/2017 Status: F Source: [place] NO DIFF 4:10 AM REPOSITORY Order Comment: Comments: Day #1 Reason for Laboratory Test TYPE CODE TESTS RESULT OUT OF RANGE REFERENCE UNITS LAB L100.1000 4.4-11.0 K/mm3 High WBC 14.7 LAB L100.1200 4.2-5.4 M/mm3 Low RBC 3.48 LAB L100.1300 12.0-15.0 g/dl Low HGB 10.7 LAB L100.1400 37-47 % Low HCT 32.1 LAB L100.1500 81-99 fL Normal MCV 92.2 LAB L100.1600 27.0-32.0 pg Normal MCH 30.7 LAB L100.1700 32-36 g/gl Normal MCHC 33.3 LAB L100.1810 11.6-14.6 % Normal RDW CV 14.1 LAB L100.1820 35.1-43.9 fl High RDW SD 46.5 LAB L100.1900 150-450 K/mm3 Normal PLT 252 LAB L100.2000 6.2-12.0 fl Normal MPV 10.8 Performed By: #### L100.0500 #### [facility] [address] [place], [address] OPERATIVE REPORT Observed: 12/17/2017 Status: F Source: [place] 1:12 PM REPOSITORY [facility] Medical Records Department [address] [place] [id number] Operative Report 12/17/17 1210 MR#: [id number] Acct: [id number] Name: KARSON FAJARDO Rep #: [id number] : 1985 32 From: William Ortiz MD PCP: Jim Ray MD Status: ADM IN Y Location: [id number] Operative Report Date of Procedure: 12/17/17 Surgeon: William Ortiz MD, FACOG Doubler Helper: STACY Al; STACY Martinez Anesthesia: Erwin Green CRNA Anesthesia: Spinal with Duramorph Pre-op Diagnosis: Prior Section And Desires Permanent Sterilization Post-Op Diagnosis: Prior Section And Desires Permanent Sterilization Procedure: Repeat Low Transverse Cervical Caesarean Section And Bilateral Tubal Occlusion with Filshie Clips Findings: Viable female with Apgars of 9/10 in occiput anterior presentation with clear amniotic fluid and normal three-vessel placenta. Cord around the neck 1 tight. Indication: This is a 32-year-old who presents for a repeat at 39 weeks gestation. care has otherwise been uneventful. The patient has been counseled regarding the risk and indications of this procedure including the possibility of bleeding infection and injury to surrounding structures such as bowel bladder. All questions were answered. Procedure: Patient was taken to the operating room where after spinal anesthesia was placed, the patient was prepped and draped in usual sterile fashion and a Asher catheter was placed. The abdomen was entered through the patient's prior Pfannenstiel incision and peritoneum was entered bluntly. After developing a bladder flap on the lower uterine segment a low transverse incision was made on the uterus and head was easily delivered onto the operative field the nose mouth and oropharynx were bulb suctioned. Subsequently a viable female was born with Apgars of 9/10. The was noted to cry move all extremities vigorously on the operative field. The umbilical cord was doubly clamped and ligated and handed to the nursery personnel who were present for the delivery. Placenta was delivered and noted to be 3 vessels and normal. Uterus was exteriorized and remaining placental tissue was removed. The uterus was then closed in 2 layers first with running locked 0 Vicryl suture followed by a second imbricating layer with 0 Vicryl suture. 0 Vicryl suture was then used in a horizontal mattress interrupted fashion to affect final hemostasis of the uterine incision line. Normal fallopian tubes and ovaries were visualized and Filshie clips were placed approximately 1-2 cm from the fundus on each tube; the uterus was returned to the pelvis. Hemostasis was noted and rectus abdominis muscles were reapproximated in the midline with interrupted Number 0 Vicryl suture in a horizontal mattress fashion. Fascia was closed with running Number 1 PDS Strata fix suture. Subcutaneous tissue was irrigated with copious amouts of saline solution and then closed with running 3-0 Vicryl suture. Skin was closed with 4-0 monocryl suture in a running subcuticular fashion. Steri strips, telfa, and tape were placed across the incision. The patient tolerated the procedure well and was taken to the recovery room in satisfactory condition. Sponge, needle, and instrument counts were all reportedly correct. EBL was less than 500 cc. Ancef 2 gms IV was given prior to the procedure. Spicemen to Pathology: None Complications: None 12/17/17 1312 <Electronically signed by William Ortiz MD> Date William Ortiz MD CC: William Ortiz MD; Jim Ray MD Signed DISCHARGE INSTRUCTION Observed: 12/17/2017 Status: F Source: YOEL 12:11 PM REPOSITORY [facility] Medical Records Department [address] [place] [address] Instructions for Home/Discharge Instructions 12/17/17 1211 MR#: [id number] Acct: [id number] Name: KARSON FAJARDO Rep #: [id number] : 1985 32 From: William Ortiz MD PCP: Jim Ray MD Status: ADM IN Discharge Diet: No Restrictions Discharge Activity: May not drive while taking narcotic pain medications., May Shower, May Take a Tub Bath May resume sexual activity in: 4-6 weeks Lifting Restrictions: 20 pounds Additional Activity Instructions:: Nothing in the vagina for 4-6 weeks. You may return to work/school in 6 weeks. Call your doctor if your incision/area has: Continuous Slow Oozing, Sudden Increased Bleeding, Increased Pain/ Swelling, Increased Redness, Foul Smelling Discharge Call your doctor if you observe: Fever of 101 or Higher, Inability to urinate, Inability to have a bowel movement, Using more than one pad per hour Additional Instructions: If you experience any of the following, contact your healthcare provider. * Bleeding that soaks a pad every hour for 2 hours * Unrelieved incision or abdominal pain * Swelling, redness, discharge or bleeding from your incision or episiotomy site * Your incision begins to separate * Problems urinating (including inability to urinate or burning while urinating). * Visual changes * Severe headache * Flu-like symptoms * Pain or redness in one of both of your breasts * Pain, warmth, tenderness or swelling in your legs, especially the calf area * Frequent nausea and vomiting * Symptoms of depression or anxiety If you experience any of the following, call 911 or go to the nearest Emergency Room. * Chest pain * Problems breathing * Seizure activity * Partial or complete paralysis of a body part, slurred speech, weakness or drooping of the face, or a sudden inability to walk or hold your balance Allergies/Adverse Reactions: Allergies No Known Allergies Allergy (Verified 12/17/17 10:36) Medications to take at Discharge Pnv95/Ferrous Fumarate/FA [ Formula] 1 each PO DAILY 05/08/17 Docusate Sodium [Colace] 100 mg PO BID PRN PRN #60 cap 12/17/17 Oxycodone [Oxyir] 5 mg PO Q6H PRN PRN 7 Days #20 tab 12/17/17 The following prescriptions were given: Oxycodone [Oxyir] 5 mg PO Q6H PRN PRN 7 Days #20 tab PRN Reason: Severe Pain (-01/06) Docusate Sodium [Colace] 100 mg PO BID PRN PRN #60 cap PRN Reason: Constipation Follow-Up: Call to make an appointment with your doctor for an incision check in 1-2 weeks. You will also need a 6 week post- follow up appointment. Test results from this visit will be discussed in further detail at your follow-up appointment, if applicable. Please Follow Up With: William Ortiz MD - [phone] When: Call to make an appointment for an incision check in 2 weeks. Primary Care Physician: Jim Ray MD [Primary Care Provider] - 12/17/17 1211 <Electronically signed by William Ortiz MD> Date William Ortiz MD CC: Jim Ray MD CBC W/DIFF, AUTOMATED Collected: 12/17/2017 Status: F Source: [place] 10:15 AM REPOSITORY TYPE CODE TESTS RESULT OUT OF RANGE REFERENCE UNITS LAB L100.1000 4.4-11.0 K/mm3 High WBC 13.8 LAB L100.1200 4.2-5.4 M/mm3 Low RBC 4.06 LAB L100.1300 12.0-15.0 g/dl Normal HGB 12.4 LAB L100.1400 37-47 % Normal HCT 37.1 LAB L100.1500 81-99 fL Normal MCV 91.4 LAB L100.1600 27.0-32.0 pg Normal MCH 30.5 LAB L100.1700 32-36 g/gl Normal MCHC 33.4 LAB L100.1810 11.6-14.6 % Normal RDW CV 13.9 LAB L100.1820 35.1-43.9 fl High RDW SD 45.8 LAB L100.1900 150-450 K/mm3 Normal PLT 318 LAB L100.2000 6.2-12.0 fl Normal MPV 11.6 LAB L100.2100 47-70 % High NEUT% 72.1 LAB L100.2200 19-41 % Low LY% 18.6 LAB L100.2300 0-10 % Normal MONO% 7.2 LAB L100.2400 0-5 % Normal EO% 1.3 LAB L100.2500 0-1 % Normal BASO% 0.3 LAB L100.2550 0.0-0.9 % Normal IM GRAN % 0.500 Result Comment: IG% - Immature Granulocytes (promyelocytes, myelocytes and metamyelocytes) > 1% indicates that a LEFT SHIFT is Present. LAB L100.2620 2.0-7.7 X10 3/uL High Absolute Neut 9.9 LAB L100.2720 0.83-4.51 X10 3/ul Normal Absolute Lymph 2.57 Performed By: #### L100.0100 #### [facility] [address] [place], [place], [id number] TYPE AND SCREEN Collected: 12/17/2017 Status: F Source: [place] 10:15 AM REPOSITORY Order Comment: Reason for Type AND Screen/Red Cells: SURGERY Type of Surgery: TYPE CODE TESTS RESULT OUT OF RANGE REFERENCE UNITS LAB B10.0800 A Normal BLOOD TYPE GEL POSITIVE LAB B100.4000 Normal Antibody NEGATIVE Screen Performed By: #### B101.7450 #### [facility] [address] [place], [place], [address] GROUP B STREP DNA Collected: 12/02/2017 Status: F Source: [place] BY PCR 2:00 PM REPOSITORY Order Comment: Source: Vaginal-Rectal TYPE CODE TESTS RESULT OUT OF RANGE REFERENCE UNITS LAB L8200.0100 Negative Normal GBS TEST Negative RESULT Performed By: #### L8200.0000 #### [facility] [address] [facility] [address] [place], [place], [address] Observed: 12/02/2017 Status: F Source: [facility] CULTURE, GROUP B 12:00 AM STREPTOCOCCUS REPOSITORY FLAQUITO Culture Group B Beta Streptococcus is not isolated. Performed By: #### M100.1800 #### [facility] [facility] [place], [place], [address] GESTATIONAL GTT 3HR Collected: 10/13/2017 Status: F Source: [place] 100G 9:58 AM REPOSITORY Order Comment: Is Patient Fasting? Y TYPE CODE TESTS RESULT OUT OF RANGE REFERENCE UNITS LAB L501.0650 <105 mg/dL Normal GLU 80 GTT-FASTING Result Comment: GLUCOSE TOLERANCE TEST FOR Reference Interval GESTATIONAL DIABETES Fasting <105 mg/dL 1 hour <190 mg/dl 2 hour <165 mg/dl 3 hour <145 mg/dl LAB L501.0660 <190 mg/dL Normal GLU GTT- 1HR 173 LAB L501.0670 <165 mg/dL High GLU GTT- 2HR 166 LAB L501.0680 <145 L Normal GLU GTT- 3HR 119 Performed By: #### L500.4710 #### [facility] [address] [facility], [place], [address] CBC-COMPLETE BLOOD CNT Collected: 10/07/2017 Status: F Source: [place] NO DIFF 10:50 AM REPOSITORY TYPE CODE TESTS RESULT OUT OF RANGE REFERENCE UNITS LAB L100.1000 4.4-11.0 K/mm3 High WBC 14.9 LAB L100.1200 4.2-5.4 M/mm3 Low RBC 3.67 LAB L100.1300 12.0-15.0 g/dl Low HGB 11.2 LAB L100.1400 37-47 % Low HCT 34.2 LAB L100.1500 81-99 fL Normal MCV 93.2 LAB L100.1600 27.0-32.0 pg Normal MCH 30.5 LAB L100.1700 32-36 g/gl Normal MCHC 32.7 LAB L100.1810 11.6-14.6 % Normal RDW CV 13.2 LAB L100.1820 35.1-43.9 fl High RDW SD 44.7 LAB L100.1900 150-450 K/mm3 Normal PLT 334 LAB L100.2000 6.2-12.0 fl Normal MPV 11.4 Performed By: #### L100.0500 #### [facility] [address] [place], [address] GLUCOSE CHALLENGE GEST Collected: 10/07/2017 Status: F Source: [place] 1H 50G 10:50 AM REPOSITORY TYPE CODE TESTS RESULT OUT OF RANGE REFERENCE UNITS LAB L501.0250 70-140 mg/dL High GLU GEST 164 50g 1H Performed By: #### L501.0250 #### [facility] [address] [place], [address] URINE DRUG SCREEN Collected: 05/27/2017 Status: F Source: [place] (VISTA) 11:31 AM REPOSITORY Order Comment: List of Drugs Taken or Suspected? U TYPE CODE TESTS RESULT OUT OF RANGE REFERENCE UNITS LAB L505.0075 TO BE Normal CONFIRMED Result Comment: CONFIRMATORY TESTING FOR ALL POSITIVE URINE DRUG SCREEN RESULTS WILL ONLY BE SENT OUT UPON PHYSICIAN ORDER. VISTA Urine Drug Screen methods provide only preliminary analytical test results. A more specific alternate chemical method must be used in order to obtain a confirmed analytical result. Gas chromatography/mass spectrometery (GC/MS) is the preferred confirmatory method. Clinical consideration and professional judgement should be applied to any drug of abuse test result, particularly when preliminary positive results are used. URINE TCA TESTING MUST BE ORDERED SEPARATELY. USE TEST MNEMONIC: [facility] LAB L505.5005 VISTA UDS PH 8 Normal LAB L505.5015 <1000 ng/mL AMPHETAMINES Normal NEGATIVE LAB L505.5025 < 200 ng/mL BARBITIURATES Normal NEGATIVE LAB L505.5035 < 200 ng/mL BENZODIAZIPINE Normal NEGATIVE LAB L505.5045 < 300 ng/mL COCAINE Normal NEGATIVE LAB L505.5055 < 500 ng/mL ECSTACY Normal NEGATIVE LAB L505.5065 < 300 ng/mL METHADONE Normal NEGATIVE LAB L505.5075 < 300 High ng/mL OPIATES POSITIVE LAB L505.5085 < 25 ng/mL PCP Normal NEGATIVE LAB L505.5095 < 50 High ng/mL THC POSITIVE Performed By: #### L505.5000, L505.6240 #### [facility] [address] [place], [place], [address] NICOTINE URINE DRUG Collected: 05/27/2017 Status: F Source: [place] SCREEN 11:31 AM REPOSITORY Order Comment: List of Drugs Taken or Suspected? U TYPE CODE TESTS RESULT OUT OF RANGE REFERENCE UNITS LAB L505.6250 TO BE Normal CONFIRMED Result Comment: CONFIRMATORY TESTING FOR ALL POSITIVE URINE DRUG SCREEN RESULTS WILL ONLY BE SENT OUT UPON PHYSICIAN ORDER. The results of Urine Drug Screen methods provide only preliminary analytical test results. A more specific alternate chemical method must be used in order to obtain a confirmed analytical result. Gas chromatography/mass spectrometery (GC/MS) is the preferred confirmatory method. Clinical consideration and professional judgement should be applied to any drug of abuse test result, particularly when preliminary positive results are used. LAB L505.6270 <200 ng/mL High COT DRG Positive SCREEN Result Comment: Cotinine is the first-stage metabolite of Nicotine. Performed By: #### L505.5000, L505.6240 #### [facility] [address] [facility] [address] [place], [place], [address] CBC W/DIFF, AUTOMATED Collected: 05/27/2017 Status: F Source: [place] 11:31 AM REPOSITORY TYPE CODE TESTS RESULT OUT OF RANGE REFERENCE UNITS LAB L100.1000 4.4-11.0 K/mm3 High WBC 12.4 LAB L100.1200 4.2-5.4 M/mm3 Normal RBC 4.35 LAB L100.1300 12.0-15.0 g/dl Normal HGB 13.5 LAB L100.1400 37-47 % Normal HCT 40.2 LAB L100.1500 81-99 fL Normal MCV 92.4 LAB L100.1600 27.0-32.0 pg Normal MCH 31.0 LAB L100.1700 32-36 g/gl Normal MCHC 33.6 LAB L100.1810 11.6-14.6 % Normal RDW CV 13.1 LAB L100.1820 35.1-43.9 fl High RDW SD 44.4 LAB L100.1900 150-450 K/mm3 Normal PLT 297 LAB L100.2000 6.2-12.0 fl Normal MPV 11.5 LAB L100.2100 47-70 % Normal NEUT% 67.9 LAB L100.2200 19-41 % Normal LY% 25.1 LAB L100.2300 0-10 % Normal MONO% 5.9 LAB L100.2400 0-5 % Normal EO% 0.7 LAB L100.2500 0-1 % Normal BASO% 0.2 LAB L100.2550 0.0-0.9 % Normal IM GRAN % 0.200 Result Comment: IG% - Immature Granulocytes (promyelocytes, myelocytes and metamyelocytes) > 1% indicates that a LEFT SHIFT is Present. LAB L100.2620 2.0-7.7 X10 3/uL High Absolute Neut 8.4 LAB L100.2720 0.83-4.51 X10 3/ul Normal Absolute Lymph 3.10 Performed By: #### L100.0100 #### [facility] [address] [place], [address] THYROID STIM HORMONE Collected: 05/27/2017 Status: F Source: [place] (TSH) 11:31 AM REPOSITORY TYPE CODE TESTS RESULT OUT OF RANGE REFERENCE UNITS LAB L501.9520 0.358-3.74 uIU/mL Normal TSH 1.25 Performed By: #### L501.9520 #### [facility] [address] [place], [address] URINALYSIS, ROUTINE Collected: 05/27/2017 Status: F Source: [place] (DIPSTICK) 11:31 AM REPOSITORY Order Comment: How was Urine Obtained? CLEAN CATCH TYPE CODE TESTS RESULT OUT OF RANGE REFERENCE UNITS LAB L400.3000 Yellow COLOR Normal Yellow LAB L400.3050 Clear Normal CLARITY Cloudy LAB L400.3200 Normal mg/dl Normal GLUCOSE, UR Normal LAB L400.3300 Negative mg/dL Normal BILIRUBIN URINE Negative LAB L400.3400 Negative mg/dl High 15 KETONE UR LAB L400.3465 1.002-1.030 Normal SP.GR. DIPSTX 1.015 LAB L400.3550 5.0 - 8.0 pH UR Normal 8.0 LAB L400.3600 Negative mg/dl PROT Normal DIPSTX Negative LAB L400.3700 Normal mg/dl Normal UROBILI Normal LAB L400.3750 Negative Normal NITRITE UR Negative LAB L400.3780 Negative /ul High 10 OCCULT BLOOD-UR LAB L400.3800 Negative /ul LEUK Normal ESTERASE Negative Performed By: #### L400.2010 #### [facility] [address] [place], [address] RUBELLA IGG Collected: 05/27/2017 Status: F Source: [place] 11:31 AM REPOSITORY TYPE CODE TESTS RESULT OUT OF RANGE REFERENCE UNITS LAB L509.4000 IU/mL Normal Rubella IgG 181.4 Result Comment: Antibody results Interpretation of Immune Status < 5 IU/ml Presumed Non-immune 5 - < 10 IU/ml Equivocal > or = 10 IU/ml Presumed Immune Performed By: #### L509.4000, L3890.6005 #### [facility] [address] [facility] [place], [address] HIV - [facility] Collected: 05/27/2017 Status: F Source: [place] 11:31 AM REPOSITORY TYPE CODE TESTS RESULT OUT OF RANGE REFERENCE UNITS LAB L3890.6005 Nonreactive Normal HIV - [facility] Non-Reactive Performed By: #### L509.4000, L3890.6005 #### [facility] [facility] [address] [facility] [address] T AND S-NO Collected: 05/27/2017 Status: F Source: [place] CHARGE W/PNP 11:31 AM REPOSITORY Order Comment: Reason for Type AND Screen/Red Cells: Surgery? N TYPE CODE TESTS RESULT OUT OF RANGE REFERENCE UNITS LAB B10.0800 A Normal BLOOD POSITIVE TYPE GEL LAB B100.4050 Normal Ab SCREEN NEGATIVE GEL Performed By: #### B100.7550 #### [facility] [address] [place], [address] HEPATITIS B SURFACE Collected: 05/27/2017 Status: F Source: YOEL AG 11:31 AM REPOSITORY TYPE CODE TESTS RESULT OUT OF RANGE REFERENCE UNITS LAB L3100.0400 Negative Normal HB Negative SURF AG Result Comment: Performed at: [facility] [id number] Recycler Forklift Driver Truck Driver: Vikram Arellano PhD, Phone: [phone] Performed By: #### L3100.0390, L3100.0625 #### [facility] (refer to report for specific site) refer to report for address and phone number HEPATITIS C ANTIBODIES Collected: 05/27/2017 Status: F Source: Y[place] 11:31 AM REPOSITORY TYPE CODE TESTS RESULT OUT OF RANGE REFERENCE UNITS LAB L3100.0650 0.0-0.9 s/co ratio Normal HEP C AB 0.2 Result Comment: Negative: < 0.8 Indeterminate: 0.8 - 0.9 Positive: > 0.9 The CDC recommends that a positive HCV antibody result be followed up with a HCV Nucleic Acid Amplification test (047884). Performed By: #### L3100.0390, L3100.0625 #### [facility] (refer to report for specific site) refer to report for address and phone number RPR Collected: 05/27/2017 Status: F Source: YO[place] 11:31 AM REPOSITORY TYPE CODE TESTS RESULT OUT OF REFERENCE UNITS RANGE LAB L700.5100 NONREACTIVE Normal RPR NONREACTIVE Performed By: #### L700.5100 #### [facility] [address] [place], [address] EMERGENCY DEPARTMENT Observed: 05/09/2017 Status: F Source: YOEL SUMMARY 12:27 AM REPOSITORY [facility] Medical Records Department [address] [place] [address] Emergency Department Summary 05/09/17 0010 MR#: [id number] Acct: [id number] Name: KARSON FAJARDO Rep #: [id number] : 1985 32 From: Winsome Herrera MD PCP: Jim Ray Status: REG ER - ER Visit Summary Date of Service: 05/09/17 Chief Complaint: Dysuria, urinary frequency History of Present Illness: The patient is a 32 F presenting with dysuria and urinary frequency. This has been ongoing for 5 days. She saw her [facility]NER yesterday and was put on Macrobid. She is currently 6 weeks . She denies vaginal bleeding. She has left flank and suprapubic pain. She is AB 3. She has a history of kidney stones and has been seen by Dr. Whitmore. Physical Examination: Vitals are stable. Patient is afebrile. Alert no acute distress. HEENT exam is unremarkable. Lungs are clear and equal bilaterally. Heart is regular rate and rhythm. Abdomen is soft nontender nondistended. No rebound or guarding. Back: mild left CVA tenderness Extremities are unremarkable. Skin is warm and dry. Remainder of exam is unremarkable. Emergency Department Course and Treatment: Patient was given IV fluids, morphine, Zofran. CBC shows a white count of 15.7. Chemistries unremarkable. Urinalysis shows 5-10 white blood cells, 0-5 red blood cells. Urine culture was sent. Her pain is improved following medications. Discussed risk of radiation of CT scan and opted to do a renal ultrasound. This shows a trace right-sided pelviectasis, punctate stone right kidney, no left hydronephrosis. Her pain is mainly in the left flank. Discussed with Dr. Whitmore and Dr. Ortiz. She will be given a prescription for pyridium and advised to continue her antibiotics. She will be seen for outpatient follow-up. She is advised to return to ED if she has any worsening complaints. Disposition: Discharge home Impression: UTI, This note was generated with Nervogrid dictation software. It may contain incorrect words, spelling, and punctuation that were not noted in review of the chart prior to signing ED Disposition - Plan for ED Patient: Chief Complaint: Complaint Instructions: ED UTI Cystitis Female Prescriptions: Phenazopyridine HCl [Pyridium] 200 mg PO BID PRN PRN #10 tablet PRN Reason: Pain Referrals: Maurice Whitmore MD [STAFF PHYSICIAN] - William Ortiz MD [STAFF PHYSICIAN] - Jim Ray MD [Primary Care Provider] - What to do if you have Problems For any increased pain, shortness of breath, bleeding, nausea or vomiting, chest pain, or any unexpected problems, contact your Primary Care Provider. Call [email or web address] ([phone]) or report to the closest Emergency Room. Call 911 if necessary. 05/09/17 0027 <Electronically signed by Winsome Herrera MD> Date Winsome Herrera MD Cosigner Signature (If Indicated): Date CC: Jim Ray DISCHARGE INSTRUCTION Observed: 05/09/2017 Status: F Source: YOEL 12:15 AM REPOSITORY [facility] Medical Records Department [address] [place] [address] Discharge Instruction 05/09/17 0014 MR#: [id number] Acct: [id number] Name: KARSON FAJARDO Rep #: [id number] : 1985 32 From: Wisnome Herrera MD PCP: Jmi Ray Status: REG ER ED Disposition - Plan for ED Patient: Chief Complaint: Complaint Instructions: ED UTI Cystitis Female Prescriptions: Phenazopyridine HCl [Pyridium] 200 mg PO BID PRN PRN #10 tablet PRN Reason: Pain Referrals: Jim Ray MD [Primary Care Provider] - William Ortiz MD [STAFF PHYSICIAN] - Maurice Whitmore MD [STAFF PHYSICIAN] - What to do if you have Problems For any increased pain, shortness of breath, bleeding, nausea or vomiting, chest pain, or any unexpected problems, contact your Primary Care Provider. Call [facility] ([phone]) or report to the closest Emergency Room. Call 911 if necessary. 05/09/17 0015 <Electronically signed by Winsome Herrera MD> Date Winsome Herrera MD Cosigner Signature (If Indicated): Date CC: Jim Ray Observed: 05/08/2017 Status: F Source: YOEL CULTURE, URINE 10:10 PM REPOSITORY Order Date: 05/09/17 Urine Culture ORGANISM 1: Mixed Gram Positive Organisms [place] Count 1000-10,000 MIX CULTURE Mixed contaminants. Submit a new specimen if indicated. Performed By: #### M100.0650 #### [facility] [place], [address] CBC W/DIFF, AUTOMATED Collected: 05/08/2017 Status: F Source: YOEL 8:58 PM REPOSITORY TYPE CODE TESTS RESULT OUT OF RANGE REFERENCE UNITS LAB L100.1000 4.4-11.0 K/mm3 High WBC 15.7 LAB L100.1200 4.2-5.4 M/mm3 Normal RBC 4.45 LAB L100.1300 12.0-15.0 g/dl Normal HGB 13.9 LAB L100.1400 37-47 % Normal HCT 41.2 LAB L100.1500 81-99 fL Normal MCV 92.6 LAB L100.1600 27.0-32.0 pg Normal MCH 31.2 LAB L100.1700 32-36 g/gl Normal MCHC 33.7 LAB L100.1810 11.6-14.6 % Normal RDW CV 13.0 LAB L100.1820 35.1-43.9 fl Normal RDW SD 43.7 LAB L100.1900 150-450 K/mm3 Normal PLT 284 LAB L100.2000 6.2-12.0 fl Normal MPV 10.8 LAB L100.2100 47-70 % High NEUT% 79.8 LAB L100.2200 19-41 % Low LY% 11.9 LAB L100.2300 0-10 % Normal MONO% 7.1 LAB L100.2400 0-5 % Normal EO% 0.9 LAB L100.2500 0-1 % Normal BASO% 0.2 LAB L100.2550 0.0-0.9 % Normal IM GRAN % 0.100 Result Comment: IG% - Immature Granulocytes (promyelocytes, myelocytes and metamyelocytes) > 1% indicates that a LEFT SHIFT is Present. LAB L100.2620 2.0-7.7 X10 3/uL High Absolute Neut 12.5 LAB L100.2720 0.83-4.51 X10 3/ul Normal Absolute Lymph 1.86 Performed By: #### L100.0100 #### [facility] [address] [place], [address] BASIC METABOLIC Collected: 05/08/2017 Status: F Source: YOEL PROFILE (BMP) 8:58 PM REPOSITORY TYPE CODE TESTS RESULT OUT OF RANGE REFERENCE UNITS LAB L501.0100 74-106 mg/dL Normal GLU 90 Result Comment: Please note revised GLUCOSE reference range effective 2017. LAB L501.1000 7-18 mg/dL Normal BUN 11 LAB L501.1100 0.55-1.02 mg/dL Normal CREAT,SERUM 0.59 Result Comment: The validity of the calculated GFR AND GFRAA in patients over 70 years has not been determined. Clinical correlation is essential. LAB L501.1110 >60 mL/min Normal EST GFR 128 Result Comment: Non- GFR Calc LAB L501.1115 >60 mL/min Normal EST GFR - AA 155 Result Comment: GFR Calc LAB L501.1255 ml/min Normal Estimated CRCL 145.71 LAB L501.1300 10-20 RATIO BUN/CRE Normal 18.8 LAB L501.2200 8.5-10 mg/dL .1 CA Normal 9.0 LAB L501.5300 136-14 mmol/L 5 NA Normal 138 LAB L501.5600 3.5-5. mmol/L 1 K Normal 3.6 LAB L501.5900 98-107 mmol/L CL Normal 107 LAB L501.6100 21.0-3 mmol/L 2.0 CO2 Normal 22.0 LAB L501.6200 5-15 GAP Normal 9 Performed By: #### L500.2500 #### [facility] [address] [place], [address] KIDNEY AND BLADDER Observed: 05/08/2017 Status: F Source: YOEL 8:27 PM REPOSITORY [facility] Imaging Services [address] [place] [address] Kidney and Bladder MR#: [id number] Acct: [id number] Name: KARSON FAJARDO Rep #: [id number] : 1985 F 32 From: Kat Meehan MD PCP: Jim Ray Status: REG ER Study: Kidney and Bladder Date of Exam: 05/08/17 Exam# [id number] Ordering Dr: Winsome Herrera MD STUDY: RENAL ULTRASOUND - COMPLETE REASON FOR EXAM: Female, 32 years old. Left flank pain and history of stones TECHNIQUE: Ultrasound evaluation of the kidneys was performed with real-time and static manley-scale imaging. COMPARISON: June 15, 2014 CT scan abdomen and pelvis. FINDINGS: RIGHT KIDNEY: Normal location of the right kidney, which is normal in size. The right kidney measures 10.8 x 5.4 x 4.3 cm. There is a normal cortex of the right kidney. The renal cortex measures 0.9 cm. There is no right renal mass or cyst. There is a lower pole calcification measuring 3.5 mm image #8. On image #5 there is a suggestion of punctate stones. There is trace right side pelviectasis. LEFT KIDNEY: Normal location of the left kidney, which is normal in size. The left kidney measures 0.9 cm. There is a normal cortex of the left kidney. The renal cortex measures cm. There is no left renal mass or cyst. There are no left renal calculi. There is no left hydronephrosis. BLADDER: The bladder is empty. US/Kidney and Bladder IMPRESSION: Trace right-sided pelviectasis visualized punctate stone in 3.5 mm stone right kidney. No evidence of left-sided hydronephrosis. Electronically Signed: Kat Meehan MD at 22:40 EST Tel , Service support , CC: Winsome Herrera MD; Jim Ray Music Promoter: Signed URINALYSIS, COMPLETE Collected: 05/08/2017 Status: F Source: YOEL 8:00 PM REPOSITORY Order Comment: Order Date: 05/08/17 How was Urine Obtained? MINE WEDGE SAWYER TO SPECIFY TYPE CODE TESTS RESULT OUT OF RANGE REFERENCE UNITS LAB L400.3000 Yellow COLOR Normal Yellow LAB L400.3050 Clear Normal CLARITY Cloudy LAB L400.3200 Normal mg/dl Normal GLUCOSE, UR Normal LAB L400.3300 Negative mg/dL Normal BILIRUBIN URINE Negative LAB L400.3400 Negative mg/dl High KETONE UR 150 Result Comment: CRITICAL VALUE *H CALLED TO GERMAN GONZALEZ 05/08/17@2035 BY MADHAVI LAB L400.3465 1.002-1.030 Normal SP.GR. DIPSTX 1.020 LAB L400.3550 5.0 - 8.0 pH Normal UR 6.0 LAB L400.3600 Negative mg/dl High 30 PROT DIPSTX LAB L400.3700 Normal mg/dl High 1 UROBILI LAB L400.3750 Negative Normal NITRITE UR Negative LAB L400.3780 Negative /ul High 25 OCCULT BLOOD-UR LAB L400.3800 Negative /ul High 25 LEUK ESTERASE LAB L400.4050 0-5 /hpf Normal WBC 5-10 SEEN LAB L400.4100 0-5 /hpf Normal RBC-UA 0-5 SEEN LAB L400.4150 5-10 /hpf Normal SQUAM EPI 5-10 SEEN LAB L400.4300 None Seen /hpf Normal BACTERIA RARE LAB L400.4350 <or=2+ /hpf 1+ Normal MUCUS, URINE Performed By: #### L400.0001 #### [facility] [address] [place], [place], [address] Observed: 05/07/2017 Status: F Source: YOEL CULTURE, URINE 3:13 PM REPOSITORY Urine Culture ORGANISM 1: Mixed Gram Positive Organisms [place] Count 1000-10,000 MIX CULTURE Mixed contaminants. Submit a new specimen if indicated. Performed By: #### M100.0650 #### [facility] [address] [place], [address] CT/NG W[facility] BY PCR Collected: 05/07/2017 Status: F Source: [facility] 3:11 [facility] REPOS[facility] TYPE CODE TESTS RESULT OUT OF RANGE REFERENCE UNITS LAB L8200.2100 Negative Normal Chlam Negative Trac PCR LAB L8200.2200 Negative Normal NG by Negative PCR Performed By: #### L8200.2000 #### [facility] [address] [place], [address] ALLERGIES ALLERGIES DATE TYPE / CODE NAME / CODE REACTION SEVERITY SOURCE 12/17/2017 Drug No Known Unknown [facility] Allergy/4160 Allergies/F00 Hospital 93853(SNOMED 0398980(RXNOR Repository CT) M) ENCOUNTERS ENCOUNTERS ADMIT/DISCHARGE ACCOUNT ADMITTING ENCOUNTER LOCATION SOURCE NUMBER CLASS 04/16/2018 [id number] Ambulatory Yoel Cornelius 3 [facility] ing:LABSPEC Repository 12/21/2017/ [id number] Ambulatory Yoel Cornelius 8 9 [facility] ing:WPOUT Repository 12/17/2017/ [id number] William Ortiz Inpatient Yoel Cornelius 8 6 Encounter [facility] ing:WPRoom: Repository [id number]: 1 12/02/2017 [id number] Ambulatory Yoel Cornelius 1 [facility] ing:LABSPEC Repository 10/13/2017 [id number] Ambulatory Cornelius Cornelius 4 [facility] ing:LAB Repository 10/07/2017 [id number] Ambulatory Yoel Yoel 3 [facility] ing:WOBLAB Repository 05/27/2017 [id number] Ambulatory Cornelius Yoel 8 [facility] ing:WOBLAB Repository 05/08/2017/ [id number] Emergency Yoel Yoel 8 3 [facility] ing:ED Repository 05/07/2017 [id number] Ambulatory Cornelius Yoel 0 [facility] ing:WOBLAB Repository PAYERS PAYERS ENCOUNTER GUARANTOR PAYER SUBSCRIBER SOURCE 04/16/2018 HERBERT [id number] Primary KARSON Wang [facility] Number: [id number] Hospital [address]Hch: [phone] [id number] Repository [phone] (CT) Date:2018-04-16[address]ATTN: [place] [address]ME: 04/16/2018 Secondary NOT GIVENUNK Yoel Insurance:SELF PAY [facility] Number: Effective Repository Date:2018-04-16 12/21/2017 HERBERT Plascencia [id number] Primary KARSON R Yoel [place] Insurance:CAR[employer]OURCEP HALLDOB: [place] Number: [id number] Hospital [address]Ycr: 330 [id number] Repository [phone] (HP) Date:2017-12-21[address]ATTN: [place] [address]FN: 12/21/2017 Secondary NOT GIVENUNK Cornel[place] Insurance:SELF PAY [facility] Number: Effective Repository Date:2017-12-21 12/17/2017 HERBERT [id number] Primary KAROSN R [place] Insurance:[employer] HALLDOB: [place] Number: [id number] Hospital [address]Hef: 330 [id number] Repository [phone] () Date:2017-08-06[address]ATTN: [place] [address]AV: 12/17/2017 Secondary NOT GIVENUNK Yoel Insurance:SELF PAY [facility] Number: Effective Repository Date:2017-08-06 12/02/2017 HERBERT GANN Primary KARSON R Yoel [id number] [place] Insurance:[employer] HALLDOB: [place] Number: [id number] Hospital [address]Kut: 330 [id number] Repository [phone] (HP) Date:2017-12-02[address]ATTN: [place] [address]GT: 12/02/2017 Secondary NOT GIVENUNK Yoel Insurance:SELF PAY [facility] Number: Effective Repository Date:2017-12-02 10/13/2017 HERBERT GANN Primary KARSON R Yoel [id number] [place] Insurance:[employer] HALLDOB: [facility] Number: [id number] Hospital [address]Kqh: 330 [id number] Repository [phone] (HP) Date:2017-10-07[address]ATTN: [place] [address]FH: 10/13/2017 Secondary NOT GIVENUNK Yoel Insurance:SELF PAY [facility] Number: Effective Repository Date:2017-10-07 10/07/2017 HERBERT GANN Primary Karson FajardoDOB: Yoel [id number] [place] Insurance:[employer]P [id number] [facility] Number: Hospital [address]Zgk: [phone] [id number] Repository [phone] (HP) Date:2017-10-07[address]ATTN: [place] [address]TO: 10/07/2017 Secondary NOT GIVENUNK Yoel Insurance:SELF PAY [facility] Number: Effective Repository Date:2017-10-07 05/27/2017 HERBERT GANN Primary Karson FajardoDOB: Cornelius [id number] [place] Insurance:[employer]P [id number] [facility] Number: Hospital [address]Ndx: [id number] Repository [phone] Date:2017-05-27P O -9 () [address]ATTN: [place] [address]DR: 05/27/2017 Secondary NOT GIVENUNK Yoel Insurance:SELF PAY [facility] Number: Effective Repository Date:2017-05-27 05/08/2017 HERBERT GANN Primary Karson FajardoDOB: Yoel [id number] [place] Insurance:[employer] [id number] [facility] Number: Hospital [id number]: [id number] Repository [phone] Date:2017-05-08P O -9 () [address]ATTN: [place] [address]CF: 05/08/2017 Secondary NOT GIVENUNK Yoel Insurance:SELF PAY [facility] Number: Effective Repository Date:2017-05-08 05/07/2017 Karson Fajardo3810 Primary Karson FajardoB: [place] Insurance:CARESOURCEP [id number] Number[facility] [address]Dqm: 330 [id number] Repository [phone] () Date:2017-05-07[address]ATTN: [place] [address]DZ: 05/07/2017 Secondary NOT GIVENUNK Cornel[place] Insurance:SELF PAY [facility] Number: Effective Repository Date:2017-05-07
== END ==
PROVIDERS: Family Provider Family Medicine; PCP Family Medicine; Referring Provider Obstetrics & Gynecology; Visit Provider Obstetrics & Gynecology
DX: R30.0 Dysuria (principal)
CPT/HCPCS: 87086; 87088; 87186

== ENCOUNTER 2018-07-22 10:05 | Emergency (ER) | payer MEDICAID, SELFPAY ==
[2018-07-22 10:06] VITALS: BP 126/72; PULSE 96; RESP 18; TEMP 37.1; O2SAT 98; BMI 26.6
--- NOTE | 2018-07-22 10:28 | CT_ITS ---
STUDY: CT ABDOMEN AND PELVIS WITHOUT CONTRAST REASON FOR EXAM: Female, 33 years old. Bilateral flank pain RADIATION DOSAGE (If Supplied By Facility): CTDIvol = ( 6.88 ) mGy, DLP = ( 367.99 ) mGycm TECHNIQUE: Transaxial images were obtained from the dome of the diaphragm to the symphysis pubis without oral contrast, and without intravenous contrast. Sagittal and coronal images were reconstructed. Individualized dose optimization techniques were used for this CT. COMPARISON: None. FINDINGS: The visualized lung bases are unremarkable. The visualized portions of the heart are within normal limits. Normal liver. Normal gallbladder and extrahepatic biliary system. Normal spleen. Normal pancreas. Normal bilateral adrenal glands. No obstructive uropathy. Punctate nonobstructing stones noted in the right kidney measuring between 2 and 3 mm in size. Normal visualized stomach. Normal small intestine. Normal colon. The appendix is visualized and appears normal. Appendix best seen on coronal recon image 43. Normal abdominal aorta. Normal inferior vena cava. Normal retroperitoneum. Normal urinary bladder. Normal-appearing uterus. Physiologic ovarian cysts noted. No demonstrated free fluid has been a previous tubal ligation. Normal abdominal wall. Normal osseous structures. CT/Abdomen/Pelvis without Cont IMPRESSION: Normal unenhanced CT of the abdomen and pelvis. Electronically Signed: Dick Espana MD at 12:00 EDT , Service support ,
--- NOTE | 2018-07-22 10:32 | ED.DCSUM_ITS ---
- ER Visit Summary Date of Service: 07/22/18 Chief Complaint: Flank pain History of Present Illness: The patient is a 33 F with a 3 to 4-day history of bilateral lower back pain and dysuria. She was recently on Bactrim for UTI. Patient states when the symptoms started again she started taking leftover Antonino trim and Azo. Patient has not noted improvement in her symptoms. Physical Examination: Vital signs unremarkable. Patient sitting upright in bed no acute distress. Head neck examination is normal. Heart is regular rate and rhythm. Lung sounds are clear. Abdomen is soft with minimal tenderness to the left lower quadrant. There is no tenderness in the suprapubic region. Back examination reveals tenderness in the bilateral lumbar paraspinals, but no true CVA tenderness. No skin rash or lesions are noted. Test Results: CBC reveals a white count 12.3 with normal differential. Hemoglobin is concentrated at 15.8. Chemistry studies normal. Urinalysis is positive for nitrites with 5-10 white cells and 2+ bacteria. test is negative. CT the abdomen and pelvis is unremarkable. Emergency Department Course and Treatment: Patient was given IV fluids, Toradol, and Zofran. Urine culture was sent. Patient has been on Bactrim recently and restarted taking some pills that she had leftover. She will be switched to a different class of antibiotics. She will be given Macrobid and Pyridium. She was advised if her culture returns and indicates Macrobid will not be sufficient coverage she will receive a phone call and we will switch her antibiotics. Treatment Plan: [] Disposition: Discharge Impression: Cystitis This note was generated with InGaugeIt dictation software. It may contain incorrect words, spelling, and punctuation that were not noted in review of the chart prior to signing ED Disposition - Plan for ED Patient: Disposition: Home or Assisted Living Instructions: ED UTI Cystitis Female Prescriptions: Nitrofurantoin Macrocrystals [Macrobid] 100 mg PO Q12 #14 capsule Phenazopyridine HCl [Pyridium] 200 mg PO BID PRN PRN #10 tablet PRN Reason: Pain Referrals: Jim Ray MD [Primary Care Provider] - 1 Week
[2018-07-22 10:56] LABS: Absolute Lymphocyte Count 2.97 X10^3/ul (0.83-4.51); Absolute Neutrophil Count 8.4 X10^3/uL (2.0-7.7); Basophil# 0.04 X10^3/uL; Basophil% 0.3 % (0-1); Eosinophil# 0.14 X10^3/uL; Eosinophils% 1.1 % (0-5); Hemoglobin 15.8 g/dl (12.0-15.0); Lymphocyte # 2.97 X10^3/ul (4.0); Lymphocyte % 24.1 % (19-41); Mean Corp Hgb Conc 34.3 g/gl (32-36); Mean Corpuscular Hgb 31.5 pg (27.0-32.0); Mean Corpuscular Volume 91.8 fL (81-99); Monocyte% 5.7 % (0-10); Neutrophil # 8.43 X10^3/uL (2.7-7.7); Neutrophil % 68.6 % (47-70); POSITIVE COUNT NO; POSITIVE DIFFERENTIAL NO; POSITIVE MORPHOLOGY NO; Platelet Count 327 K/mm3 (150-450); RBC Distribution Width CV 13.7 % (11.6-14.6); RBC Distribution Width SD 45.6 fl (35.1-43.9); Red Blood Count 5.01 M/mm3 (4.2-5.4); White Blood Count 12.3 K/mm3 (4.4-11.0)
[2018-07-22 11:07] LABS: Anion Gap 6 (5-15); BUN 12 mg/dL (7-18); BUN/Creat Ratio 15.5 RATIO (10-20); Calcium,Total 9.4 mg/dL (8.5-10.1); Chloride 107 mmol/L (98-107); Creatinine, Serum 0.77 mg/dL (0.55-1.02); EST Glomerular Filtration Rate 92 mL/min (>60); Est Glom Filt Rate - Afr Amer 112 mL/min (>60); Estimated Creatinine Clearance 110.63 ml/min; Glucose 85 mg/dL (74-106); Sodium Level 139 mmol/L (136-145)
[2018-07-22 11:17] LABS: Mucous, Urine 0 SEEN /hpf (<or=2+)
[2018-07-22 11:18] LABS: Color, Urine Yellow (Yellow); Glucose, Dipstick Normal (Normal); Ketone-Dipstick 15 mg/dl (Negative); Leukocyte Esterase-Dipstick 500 /ul (Negative); Nitrite-Dipstick Positive (Negative); Occult Blood-Urine 50 /ul (Negative); Protein-Dipstick Negative (Negative); Urine Bilirubin Dipstick Negative (Negative); Urine Clarity Sl. Cloudy (Clear); Urine Urobilinogen Normal (Normal)
[2018-07-22 11:24] LABS: Bacteria 2+ /hpf (None Seen); Red Blood Cells-Urine 0-5 SEEN /hpf (0-5); Squamous Epithelial Cells - UA 0-5 SEEN /hpf (5-10); White Blood Cells 5-10 SEEN /hpf (0-5)
[2018-07-22 11:25] LABS: Internal QC Validated? YES +Cl - CLEAR BKGD; Pregnancy, Serum, hCG Quali. NEGATIVE Negative
[2018-07-22] MEDS: Ketorolac 30 MG/ML Syringe IV (11:25)
[2018-07-22] MEDS: Ondansetron 4 MG/2 ML Vial IV (11:25)
[2018-07-22] MEDS: 0.9% Normal Saline 1,000 ML 1000 ML IV (11:25)
[2018-07-22] MEDS: Nitrofurantoin Macrocrystals 100 MG Capsule PO (12:22)
[2018-07-22 12:25] VITALS: BP 98/58; PULSE 62; RESP 16; O2SAT 100
== END 2018-07-22 12:26 | disposition home or self-care (01) ==
PROVIDERS: Emergency Provider Emergency Medicine; Family Provider Family Medicine; PCP Family Medicine
DX: N30.90 Cystitis, unspecified without hematuria (principal); Z87.440 Personal history of urinary (tract) infections; Z87.442 Personal history of urinary calculi
CPT/HCPCS: 74176; 80048; 81001; 84703; 85025; 87086; 87088; 87186; 96361; 96374; 96375; 99284; A4216; J2405

== ENCOUNTER 2019-04-29 23:57 | Emergency (ER) | payer SELFPAY ==
[2019-04-29 23:57] VITALS: BP 118/72; PULSE 82; RESP 16; TEMP 36.5; O2SAT 98; BMI 22.8
--- NOTE | 2019-04-30 00:24 | ED.VISSUMM ---
- ER Visit Summary Date of Service: 04/30/19 Chief Complaint: Ear pain History of Present Illness: The patient is a [address] Jim Ray. She reports that she has a nonproductive cough that began yesterday. She has had chills and a sore throat this 5-10 severity. She reports that tonight she developed bilateral ear pain. She describes it as an aching pain sign 10 worsening a 10 currently. Is worsened by coughing and relieved by NyQuil. She reports that the left is worse than the right. Physical Examination: Vitals: Stable. Afebrile. General: Well-nourished and well-developed. Head: Normocephalic atraumatic. HEENT: Serous effusions bilaterally. No dullness or loss of landmarks. No erythema. There is pharyngeal erythema. No tonsillar exudate or enlargement. Neck: Supple, no lymphadenopathy. No JVD. Nontender. Cardiovascular: Regular rate and rhythm. No murmurs. Respiratory: No respiratory distress. Clear to auscultation bilaterally. Abdominal: Soft, nontender, nondistended, normal bowel sounds. No guarding, rebound, or peritoneal signs. Back: Nontender. Extremities: Nontender, no edema. Skin: Normal color, no rash. Neurologic: Alert and oriented ?3. Cranial nerves II through XII are intact. Normal strength and sensation. Psych: Normal affect. Emergency Department Course and Treatment: Patient was reassured. She was treated with Tylenol and naproxen. She is resting comfortably. Treatment Plan: Patient will be discharged with symptomatic care. Instructed to use decongestants. Follow-up with Dr. Ray in 1 week if not improving. Return to the emergency department for any worsening symptoms. Disposition: To home in improved and stable condition. Impression: 1. URI. 2. Serous otitis bilaterally. This note was generated with [employer] dictation software. It may contain incorrect words, spelling, and punctuation that were not noted in review of the chart prior to signing ED Disposition - Plan for ED Patient: Disposition: Home or Assisted Living Instructions: EARACHE w/o Infection (Adult) Referrals: Jim Ray MD [Primary Care Provider] - 1 Week if not improving
[2019-04-30] MEDS: Naproxen 250 MG Tablet 500 MG PO (00:38)
[2019-04-30] MEDS: Acetaminophen 325 MG Tablet 1000 MG PO (00:38)
[2019-04-30 00:40] VITALS: RESP 14
== END 2019-04-30 00:41 | disposition home or self-care (01) ==
PROVIDERS: Emergency Provider Emergency Medicine; PCP Family Medicine; Referring Provider Family Medicine
DX: H65.93 Unspecified nonsuppurative otitis media, bilateral (principal); J06.9 Acute upper respiratory infection, unspecified; Z72.0 Tobacco use
CPT/HCPCS: 99283

== ENCOUNTER 2019-04-30 10:39 | Emergency (ER) | payer OTHER, SELFPAY ==
[2019-04-29 23:57] VITALS: BMI 22.8
[2019-04-30 10:40] VITALS: BP 135/76; PULSE 94; RESP 17; TEMP 37.1; O2SAT 100; BMI 21.4
--- NOTE | 2019-04-30 11:01 | ED.DCSUM_ITS ---
History of Present Illness Informant: Patient Occurred: Today Mechanism/Context: Incised Onset: Today Context: Sudden Onset Timing: Continuous Quality of Pain: Aching Location: Left hand Current Severity: Mild Maximum Severity: Mild Worsened by: Movement Relieved by: rest Associated Symptoms: Negative for: Parasthesia, Weakness, Loss of Funtion Narrative: 34-year-old [id number] female presents with a laceration to her left hand that occurred just prior to arrival while she was opening a box with a steam box tender. She has no other injuries. She denies any numbness or tingling. Does not remember when her last tetanus immunization was. Tetanus Immunization: Unknown Prior similar symptoms: No Recent Illness/Hospitalization: No <Reese Wakefield - Last Filed: 04/30/19 12:07> <Henri Wiggins - Last Filed: 04/30/19 12:28> Chief Complaint: Laceration Past Medical History Prior records reviewed: Yes Past Medical History: None Surgical History: no surgical history Smoking Status: Current every day smoker <Reese Wakefield - Last Filed: 04/30/19 12:07> <Henri Wiggins - Last Filed: 04/30/19 12:28> - Allergies and Home Meds Allergies/Adverse Reactions: Allergies No Known Allergies Allergy (Verified 04/30/19 10:40) Primary Care Physician: Jim Ray MD [Primary Care Provider] - [facility] [NON-STAFF] - As soon as possible Review of Systems All systems negative except as indicated General: Denies: Chills, Fever Eyes: Denies: Visual changes - bilaterally, Diplopia ENT: Denies: Rhinorrhea, Sore throat Cardiovascular: Denies: Chest pain, Palpitations Respiratory: Denies: Dyspnea, Cough Gastrointestinal: Denies: Nausea, Vomiting Genitourinary: Denies: Dysuria, Frequency Musculoskeletal: Reports: Extremity Pain. Denies: Neck pain, Back pain, Swelling Skin: Reports: Wounds. Denies: Abscess, Abrasions Neurological: Denies: Weakness, Parasthesia <Reese Wakefield - Last Filed: 04/30/19 12:07> Physical Exam Vital Signs/Narrative: Vital Signs Temp Pulse Resp BP Pulse Ox 04/30/19 10:40 98.8 F 94 17 135/76 H 100 Inital Vital Signs reviewed: Yes Left Hand: - - 2.5 cm laceration dorsum of the left hand between the first and second metacarpals. It is superficial. It is linear. There is no active bleeding. She has normal active range of motion of her first and second fingers. Capillary refill and sensation are normal. Radial pulse is normal. Normal active range of motion at the wrist. There is no bony tenderness of her left hand or wrist. General: Well nourished, Well developed Head: Normocephalic, Atraumatic Eyes: Perrl, EOMI ENT: No Trauma Neck: Nontender, Full ROM Cardiovascular: Regular rate, Regular rhythm Respiratory: No distress, CTA bilaterally, Chest nontender Back: Nontender Skin: Normal color, No rash, Trauma Neurological: Alert, Oriented x3 Psychological: Normal affect <Reese Wakefield - Last Filed: 04/30/19 12:07> Vital Signs/Narrative: Vital Signs Temp Pulse Resp BP Pulse Ox 04/30/19 10:40 98.8 F 94 17 135/76 H 100 <Henri Wiggins - Last Filed: 04/30/19 12:28> Diagnostic/Tx/Re-eval - Medical Decision Making Patient's tetanus immunization was updated. Under sterile conditions with Betadine prep lidocaine used locally for anesthesia approximately 2.5 cc. Wound was then thoroughly explored there is no evidence of tendon or ligament injury. There is no evidence of foreign body or arterial bleeding. It was cleansed and irrigated under the tap. Closed with a total of 3 sutures, nylon, #4?0. These were simple sutures. Bacitracin and dressing were applied. Patient tolerated the procedure well. Discussed with patient proper wound care and she was given signs of infection to monitor for. She will follow-up with the [facility] as this was a work-related injury. She will be given restrictions for work. She was advised to have these removed in 7 to 10 days. She will be discharged <Reese Wakefield - Last Filed: 04/30/19 12:07> - Medical Decision Making Seen and evaluated independently and in conjunction with physician catering administrative assistant. Agree with notes above unless documented otherwise. Small laceration at the base of the dorsal left thumb was repaired, under sterile prep and drape. Discussed wound care and reevaluation for suture rem oval. <Henri Wiggins - Last Filed: 04/30/19 12:28> Procedures - Lacerations No standard instances Depth: Skin Shape: Linear Prep: Sterile Conditions, Betadine Laceration Repair: Lidocaine, Local, Sutures, Wound explored Irrigated (ml): 120 Number of Sutures/Anibal: 3 Suture Information: Ethilon, 4-0 <Reese Wakefield - Last Filed: 04/30/19 12:07> ED Disposition <Reese Wakefield - Last Filed: 04/30/19 12:07> <Henri Wiggins - Last Filed: 04/30/19 12:28> - Plan for ED Patient: Disposition: Home or Assisted Living Diagnosis: Laceration of left hand Instructions: LACERATION, Extrem (Suture, Staple or Tape) Referrals: Jim Ray MD [Primary Care Provider] - [facility] [[facility]] - As soon as possible
[2019-04-30] MEDS: Diphth,Pertuss(Acell),Tet Vac 0.5 ML Vial IM (11:09)
[2019-04-30 12:30] VITALS: PULSE 90; RESP 16; O2SAT 99
== END 2019-04-30 12:31 | disposition home or self-care (01) ==
PROVIDERS: Emergency Provider Physician Assistant Medical; PCP Family Medicine; Referring Provider Family Medicine
DX: S61.412A Laceration without foreign body of left hand, initial encounter (principal); W26.8XXA Contact with other sharp object(s), not elsewhere classified, initial encounter; Y93.89 Activity, other specified; F17.200 Nicotine dependence, unspecified, uncomplicated
CPT/HCPCS: 12001; 90471; 90715; 99284

== ENCOUNTER 2019-05-04 20:59 | Emergency (ER) | payer OTHER, SELFPAY ==
[2019-05-04 20:59] VITALS: BP 130/56; PULSE 94; RESP 16; TEMP 36.3; O2SAT 98; BMI 21.4
--- NOTE | 2019-05-04 21:23 | ED.DCSUM_ITS ---
- ER Visit Summary Date of Service: 05/04/19 Chief Complaint: Left ear pain History of Present Illness: The patient is a 34 F who presents with left ear pain that has been getting worse over the past 1-1/2 weeks. Patient describes her pain as throbbing. Patient states the pain radiates into her left jaw. Patient states her pain is worse with hiccups and with coughing. Patient states she has had some yellow and green drainage from her left ear. Patient denies any fevers or chills. Patient admits to a mild sore throat. Patient also admits to a cough. Physical Examination: Vital signs are stable. Patient is afebrile. Patient is in no acute distress. The left tympanic membrane is erythematous. The right tympanic membrane has a mild effusion. Oral mucosa is pink and moist. Oropharynx is clear. Neck is supple. Trachea is midline. There is no JVD. Heart was regular rate and rhythm. Lungs are clear and equal bilaterally. Cranial nerves II through XII are intact. There are no focal motor or sensory deficits noted. Emergency Department Course and Treatment: Patient was given her first dose of amoxicillin here. Patient was given a prescription for amoxicillin. Patient was instructed to follow-up with her primary care physician in 5 to 7 days. Patient understood and was agreeable with the plan. All questions were answered. Disposition: Discharge home Impression: Acute left otitis media This note was generated with [employer] dictation software. It may contain incorrect words, spelling, and punctuation that were not noted in review of the chart prior to signing ED Disposition - Plan for ED Patient: Disposition: Home or Assisted Living Diagnosis: Acute left otitis media Instructions: OTITIS MEDIA, Abx Tx (Adult) Prescriptions: Amoxicillin 500 mg PO TID #30 tab Prescription Printed Referrals: Jim Ray MD [Primary Care Provider] - 5-7 Days
[2019-05-04] MEDS: AMOXICILLIN 500 MG CAPSULE PO (21:36)
[2019-05-04 21:37] VITALS: RESP 18
== END 2019-05-04 21:37 | disposition home or self-care (01) ==
PROVIDERS: Emergency Provider Emergency Medicine; PCP Family Medicine
DX: H66.92 Otitis media, unspecified, left ear (principal); J02.9 Acute pharyngitis, unspecified; R05 Cough; Z72.0 Tobacco use; Z87.442 Personal history of urinary calculi
CPT/HCPCS: 99283

== ENCOUNTER 2019-11-13 23:24 | Emergency (ER) | payer MEDICAID, SELFPAY ==
[2019-11-13 23:24] VITALS: BP 127/63; PULSE 98; RESP 15; TEMP 36.6; O2SAT 99; BMI 19.7
--- NOTE | 2019-11-13 23:44 | ED.VISSUMM ---
- ER Visit Summary Date of Service: 11/13/19 Chief Complaint: Lower abdominal pain History of Present Illness: The patient is a 34 F who presents with lower abdominal pain that began today. Patient states pain is a pressure and sharp over the lower abdomen. Patient states the pain is worse over the suprapubic area. Patient states the pain is better when she remains still. Patient states nothing makes the pain worse. Patient denies any nausea or vomiting. Patient denies any diarrhea or constipation. Patient denies any melena or hematochezia. Patient states her urine has been dark but denies any dysuria. Patient states her last menstrual period was approximately 2 weeks ago. Physical Examination: Vital signs are stable. Patient is afebrile. Patient is in no acute distress. Oral mucosa is pink and moist. Neck is supple. Trachea is midline. There is no JVD. Heart was regular rate and rhythm. Lungs are clear and equal bilaterally. Abdomen is soft. Bowel sounds are normal. There is some suprapubic and right lower quadrant tenderness. There is no rebound or guarding noted. Cranial nerves II through XII are intact. There are no focal motor or sensory deficits noted. Extremities are intact. There is no calf tenderness or edema. Test Results: CBC showed a mild leukocytosis of 16.4. Comprehensive metabolic profile and lipase were within normal limits. Urinalysis showed leukocyte esterase of only 25 but positive nitrates. There is 0-5 white blood cells and 0-5 epithelial cells. There is 1+ bacteria. Serum hCG was negative. CT scan of the abdomen and pelvis was obtained. There is a 2.1 cm ruptured right ovarian cyst. This was interpreted by the radiologist and reviewed by myself. Emergency Department Course and Treatment: Patient was given IV fluids, morphine, and Zofran. Patient was given a repeat dose of morphine. Patient was feeling better on reevaluation. Patient was instructed to take Tylenol or ibuprofen as needed for pain. Patient was instructed to follow-up with her primary care physician in 5 to 7 days. Patient understood and was agreeable with the plan. All questions were answered. Disposition: Discharge home Impression: 1. Right ovarian cyst This note was generated with [employer] software. It may contain incorrect words, spelling, and punctuation that were not noted in review of the chart prior to signing ED Disposition - Plan for ED Patient: Disposition: Home or Assisted Living Diagnosis: Right ovarian cyst Instructions: ED Cyst Ovarian Referrals: Jim Ray MD [Primary Care Provider] - 5-7 Days
[2019-11-14] MEDS: 0.9% Normal Saline 1,000 ML 1000 ML IV (00:02)
[2019-11-14] MEDS: Morphine 4 MG/ML Syringe IV ×2 (00:03→02:13)
[2019-11-14] MEDS: Ondansetron 4 MG/2 ML Vial IV (00:03)
[2019-11-14 00:12] LABS: Absolute Lymphocyte Count 4.33 X10^3/uL (0.83-4.51); Absolute Neutrophil Count 10.4 X10^3/uL (2.0-7.7); Basophil# 0.11 X10^3/uL; Basophil% 0.7 % (0-1); Eosinophil# 0.19 X10^3/uL; Eosinophils% 1.2 % (0-5); Hematocrit 39.7 % (37-47); Hemoglobin 13.1 g/dL (12.0-15.0); Lymphocyte # 4.33 X10^3/ul (4.0); Lymphocyte % 26.4 % (19-41); Mean Corpuscular Hgb 31.6 pg (27.0-32.0); Mean Corpuscular Volume 95.7 fL (81-99); Mean Platelet Vol. 10.9 fl (6.2-12.0); Monocyte# 1.29 X10^3/uL; Monocyte% 7.9 % (0-10); NRBC Flagged by Analyzer 0 % (0-5); Neutrophil # 10.41 X10^3/uL (2.7-7.7); Neutrophil % 63.4 % (47-70); Platelet Count 301 K/mm3 (150-450); RBC Distribution Width CV 13.2 % (11.6-14.6); RBC Distribution Width SD 47.4 fl (35.1-43.9); Red Blood Count 4.15 M/mm3 (4.2-5.4); White Blood Count 16.4 K/mm3 (4.4-11.0)
[2019-11-14 00:22] LABS: Internal QC Validated? YES +Cl - CLEAR BKGD; Pregnancy, Serum, hCG Quali. NEGATIVE Negative
[2019-11-14 00:30] LABS: ALB/GLOB Ratio 1.1 RATIO (0.9-2.4); AST(SGOT) 4 U/L (15-37); Alanine Aminotransfer ALT/SGPT 14 U/L (13-56); Albumin, Serum 3.5 g/dL (3.2-5.0); Alkaline Phosphatase 51 U/L (45-117); Anion Gap 5 (5-15); BUN 20 mg/dL (7-18); BUN/Creat Ratio 28.7 RATIO (10-20); Calcium,Total 8.7 mg/dL (8.5-10.1); Chloride 110 mmol/L (98-107); EST Glomerular Filtration Rate 103 mL/min (>60); Est Glom Filt Rate - Afr Amer 125 mL/min (>60); Estimated Creatinine Clearance 110.21 ml/min; Globulin 3.1 g/dL (2.2-4.2); Glucose 107 mg/dL (74-106); Lipase 139 U/L (73-393); Potassium 3.7 mmol/L (3.5-5.1); Protein, Total 6.6 g/dL (6.4-8.2); Sodium Level 143 mmol/L (136-145)
[2019-11-14 00:53] LABS: Mucous, Urine 0 SEEN /hpf (<or=2+)
[2019-11-14 00:56] LABS: Color, Urine Yellow (Yellow); Glucose, Dipstick Normal (Normal); Ketone-Dipstick Negative (Negative); Leukocyte Esterase-Dipstick 25 /ul (Negative); Nitrite-Dipstick Positive (Negative); Occult Blood-Urine 25 /ul (Negative); Protein-Dipstick Negative (Negative); Specific Gravity, Urine 1.025 (1.002-1.030); Urine Bilirubin Dipstick Negative (Negative); Urine Clarity Clear (Clear); Urine Urobilinogen Normal (Normal)
[2019-11-14 01:03] LABS: Bacteria 1+ /hpf (None Seen); Red Blood Cells-Urine 0-5 SEEN /hpf (0-5); Squamous Epithelial Cells - UA 0-5 SEEN /hpf (5-10); White Blood Cells 0-5 SEEN /hpf (0-5)
--- NOTE | 2019-11-14 01:10 | CT_ITS ---
STUDY: CT ABDOMEN AND PELVIS WITH CONTRAST REASON FOR EXAM: Female, 34 years old. Lower abdominal pain RADIATION DOSAGE (If Supplied By Facility): CTDIvol = ( 12.32 ) mGy, DLP = ( 409.79 ) mGycm TECHNIQUE: Transaxial images were obtained from the dome of the diaphragm to the symphysis pubis without oral contrast. Oral and amp; IV Breeza and amp; 100mL Isovue-370 was administered. Sagittal and coronal images were reconstructed. Individualized dose optimization techniques were used for this CT. COMPARISON: None. FINDINGS: The visualized lung bases are unremarkable. The visualized portions of the heart are within normal limits. Normal liver. Normal gallbladder and extrahepatic biliary system. Normal spleen. Normal pancreas. Normal bilateral adrenal glands. Normal right kidney. Normal left kidney. Normal visualized stomach. Normal small intestine. Normal colon. The appendix is visualized and appears normal. Normal abdominal aorta. Normal inferior vena cava. Normal retroperitoneum. Normal urinary bladder. There is fluid within the endometrial cavity. There is a 2.1 cm rim-enhancing, involuting hypoattenuated lesion associated with the right adnexa. There is a small amount of free fluid adjacent to the right adnexa within the pelvic cul-de-sac. Normal abdominal wall. Normal osseous structures. CT/Abdomen/Pelvis WITH Contrast IMPRESSION: Likely 2.1 cm ruptured right ovarian cyst with small amount of adjacent pelvic free fluid. Electronically Signed: Jai Dooley MD at 3:37 EDT Tel , Service support ,
[2019-11-14 03:57] VITALS: RESP 16
== END 2019-11-14 03:57 | disposition home or self-care (01) ==
PROVIDERS: Emergency Provider Emergency Medicine; PCP Family Medicine
DX: N83.201 Unspecified ovarian cyst, right side (principal); F17.200 Nicotine dependence, unspecified, uncomplicated
CPT/HCPCS: 74177; 80053; 81001; 83690; 84703; 85025; 96374; 96375; 96376; 99283; J7030; Q9967; A4216; J2405

== ENCOUNTER → 2019-11-30 14:22 | Outpatient (CLI) | payer MEDICAID, SELFPAY ==
[2019-11-13 23:24] VITALS: BMI 19.7
[2019-11-30 17:55] LABS: Thyroid Stim Hormone (TSH) 1.92 uIU/mL (0.358-3.74)
[2019-12-05 12:25] LABS: HPV APTIMA, High Risk Negative (Negative)
[2019-12-05 12:27] LABS: HPV Reflexed? YES, CHARGE PATIENT
== END ==
PROVIDERS: PCP Family Medicine; Visit Provider Obstetrics & Gynecology
DX: R63.4 Abnormal weight loss (principal); Z12.4 Encounter for screening for malignant neoplasm of cervix
CPT/HCPCS: 36415; 84443; 87624; 88175; G0145

== ENCOUNTER 2020-09-04 08:14 | Emergency (ER) | payer MEDICAID, SELFPAY ==
[2020-09-04 08:14] VITALS: BP 121/88; PULSE 106; RESP 14; TEMP 36.7; O2SAT 99; BMI 22.8
[2020-09-04 08:24] VITALS: BP 121/88; PULSE 106; RESP 14; TEMP 36.7; O2SAT 99
--- NOTE | 2020-09-04 08:46 | RAD_ITS ---
STUDY: X-RAY CHEST REASON FOR EXAM: Female, 35 years old. Cough. Fever and body aches. TECHNIQUE: Single AP portable view of the chest. COMPARISON: Comparison is made with prior study 12/17/2014. FINDINGS: The lungs are clear and expanded. There is no demonstrated pleural abnormality. Normal size heart. Normal mediastinum and justine. Normal visualized pulmonary arteries. Normal visualized aortic arch and descending thoracic aorta. Normal visualized thoracic spine. Normal visualized ribs, clavicles, and shoulders. There is no demonstrated abnormality of the visualized soft tissue structures of the upper abdomen. RAD/Chest 1 View (Portable) IMPRESSION: Normal x-ray examination of the chest. Electronically Signed: Aubrey Richey MD at 10:01 EDT , Service support ,
--- NOTE | 2020-09-04 08:50 | EDS_ITS ---
HPI History of Present Illness Chief Complaint: General Illness Informant: patient Onset/Context/Timing Onset: Days Context: Gradual Onset Timing: Continuous Current Severity: Moderate Maximum Severity: Severe Narrative Narrative: Patient is a 35-year-old female with history of kidney stone that presents to the emergency department back pain, nausea, vomiting, fever, and chills. She states her symptoms began about 2 days ago. She states that she just felt generally fatigued. Shortly thereafter, she began to spike a fever and feel nauseated. She states she had a few bouts of emesis. She describes waxing and waning pain in her left back. She also admits to urinary frequency and urgency, but feels like she cannot empty. She did arise any recent travel. She is on no daily medications. Prior similar symptoms: No Recent Illness/Hospitalization: No PFSH PFSH Medical History History of renal stone Home Medications ondansetron 4 mg PO Q8H PRN PRN #10 tab 09/04/20 [Rx Last Taken Unknown] sulfamethoxazole-trimethoprim [Bactrim DS] 1 tab PO BID #14 tab 09/04/20 [Rx Last Taken Unknown] Allergy/AdvReac Type Severity Reaction Status Date / Time No Known Allergies Allergy Verified 09/04/20 08:16 Surgical History History of tubal ligation Social History Smoking Status: Current every day smoker tobacco type: cigarettes ROS ROS ED Constitutional Constitutional ED: Reports chills, fever(s) and sweats Eyes Eyes: Denies blurry vision or change in vision ENT ENT ED: Denies ear pain or sore throat Cardiovascular Cardiovascular: Denies chest pain or palpitations Respiratory/Chest Respiratory/Chest: Denies cough, dyspnea or dyspnea on exertion Gastrointestinal Gastrointestinal: Reports nausea and vomiting Genitourinary Genitourinary ED: Reports dysuria Musculoskeletal Musculoskeletal: Denies arthralgias or myalgias Integumentary Denies rash Neurologic Neurologic: Denies headache(s) or paresthesias Psychiatric Psychiatric: Denies anxiety or depression Endocrine Endocrinology: Denies polydipsia or polyuria Allergic/Immunologic Allergic/Immunologic ED: Denies urticaria EXAM Physical Exam Const Vital Signs: 09/04/20 08:14 09/04/20 08:24 09/04/20 08:25 Temperature 98.1 F 98.1 F Temperature Source Temporal Temporal Pulse Rate 106 H 106 H Respiratory Rate 14 14 Respiratory Effort Normal Non-Labored Respiratory Pattern Normal Blood Pressure 121/88 H 121/88 H Blood Pressure Mean 99 99 Pulse Ox 99 99 Oxygen Delivery Method Room Air Room Air 09/04/20 10:26 Temperature 98.6 F Temperature Source Oral Pulse Rate 58 L Respiratory Rate 16 Respiratory Effort Respiratory Pattern Blood Pressure 90/54 L Blood Pressure Mean 66 Pulse Ox 99 Oxygen Delivery Method Room Air Positive well nourished and well developed General Appearance ED: well developed HEENT Reports normocephalic, head/scalp atraumatic and moist mucous membranes Eyes PERRL and EOMs intact bilaterally Neck no lymphadenopathy and supple General: Negative for tenderness Chest Wall inspection of chest normal Resp normal respiratory effort and clear to auscultation bilaterally Cardio regular rate, regular rhythm and no murmurs GI normal to inspection, nondistended, normoactive bowel sounds Palpation: Negative for tender, guarding or rebound tenderness present Back/Spine no CVA tenderness Cervical Spine: Negative for cervical spine tenderness Thoracic Spine / Upper Back: Negative for thoracic spinal tenderness Extremity normal to inspection General Extremety ED: Negative for tenderness Neuro oriented x3 and CN's II-XII intact bilaterally Neuro Narrative: No focal deficits appreciated. Sensorium / Orientation: alert Psych mental status grossly normal Skin no rashes or lesions noted, no wounds and skin turgor normal MDM MDM MDM Narrative Medical decision making narrative: The patient presents with flank pain, nausea, vomiting, chills and malaise. Metabolic work-up was pursued. Patient was given fluids, antiemetics, and anti-inflammatories. On reevaluation, she is feeling improved. Labs are unremarkable. Her urine does show evidence of infection and culture was added. With history of kidney stone, I did obtain noncontrast CT. There is no evidence of stone or obstruction. At this point, I do feel the patient likely has an early pyelonephritis. She will be treated with antibiotics and antiemetics. She will be discharged home. Impression 1. Pyelonephritis Lab Data Attestation: I reviewed the patient's lab results. Labs: Laboratory Results - last 24 hr 09/04/20 09/04/2009/04/21 08:32 08:32 09:21 WBC 7.7 RBC 4.57 Hgb 14.3 Hct 42.7 MCV 93.4 MCH 31.3 MCHC 33.5 RDW Std Deviation 45.4 H RDW Coeff of Lola 13.2 Plt Count 242 MPV 11.1 Immature Gran % (Auto) 0.100 Neut % (Auto) 81.1 H Lymph % (Auto) 12.8 L [place] % (Auto) 5.3 Eos % (Auto) 0.3 Baso % (Auto) 0.4 Absolute Neuts (auto) 6.3 Absolute Lymphs (auto) 0.99 Nucleated RBC % 0 Sodium 139 Potassium 3.5 Chloride 108 H Carbon Dioxide 24.0 Anion Gap 7 BUN 13 Creatinine 0.65 Estim Creat Clear Calc 128.65 Est GFR (MDRD) Af Amer 134 Est GFR (MDRD) Non-Af 111 BUN/Creatinine Ratio 19.9 Glucose 100 Calcium 9.1 Total Bilirubin 0.30 AST 20 ALT 28 Alkaline Phosphatase 83 Total Protein 7.3 Albumin 3.6 Globulin 3.7 Albumin/Globulin Ratio 1.0 Urine Color B[place] Urine Clarity Sl. Cloudy Urine pH 6.0 Ur Specific [place] 1.020 Urine Protein 100 H Urine Glucose (UA) Normal Urine Ketones 50 H Urine Occult Blood 250 H Urine Nitrite Positive H Urine Bilirubin Negative Urine Urobilinogen 1 H Ur Leukocyte Esterase 500 H Urine RBC 25-50 SEEN Urine WBC 25-50 SEEN Ur Squamous Epith Cells 0-5 SEEN Urine Bacteria 2+ Urine Mucus 1+ Urine Test Negative Radiography Diagnostic Testing: Radiology Impression Chest X-Ray 09/04/20 08:46 IMPRESSION: Normal x-ray examination of the chest. 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 No evidence of urinary obstruction seen at this time. Electronically Signed: Aubrey Richey MD at 10:24 EDT , Service support , Discharge Plan Triage Chief Complaint: General Illness ED Provider: Derek Negron Dx/Rx/DC Orders Instructions: ED Pyelonephritis, Female (Adult) Prescriptions: New sulfamethoxazole-trimethoprim [Bactrim DS] 800-160 mg tablet 1 tab PO BID Qty: 14 RF: 0 ondansetron [ondansetron] 4 MG tablet 4 mg PO Q8H PRN PRN (Reason: Nausea) Qty: 10 RF: 0 Primary Care Provider: Grant Garrido NP Referrals: Grant Garrido NP, PERSONNEL OFFICER-C [Primary Care Provider] -
[2020-09-04 08:56] LABS: Absolute Lymphocyte Count 0.99 X10^3/uL (0.83-4.51); Absolute Neutrophil Count 6.3 X10^3/uL (2.0-7.7); Basophil# 0.03 X10^3/uL; Basophil% 0.4 % (0-1); Eosinophil# 0.02 X10^3/uL; Eosinophils% 0.3 % (0-5); Hematocrit 42.7 % (37-47); Hemoglobin 14.3 g/dL (12.0-15.0); Lymphocyte # 0.99 X10^3/ul (0.83-4.51); Lymphocyte % 12.8 % (19-41); Mean Corp Hgb Conc 33.5 g/dL (32-36); Mean Corpuscular Hgb 31.3 pg (27.0-32.0); Mean Corpuscular Volume 93.4 fL (81-99); Mean Platelet Vol. 11.1 fl (6.2-12.0); Monocyte# 0.41 X10^3/uL; Monocyte% 5.3 % (0-10); NRBC Flagged by Analyzer 0 % (0-5); Neutrophil # 6.27 X10^3/uL (2.7-7.7); Neutrophil % 81.1 % (47-70); Platelet Count 242 K/mm3 (150-450); RBC Distribution Width CV 13.2 % (11.6-14.6); RBC Distribution Width SD 45.4 fl (35.1-43.9); Red Blood Count 4.57 M/mm3 (4.2-5.4); White Blood Count 7.7 K/mm3 (4.4-11.0)
[2020-09-04 09:11] LABS: AST(SGOT) 20 U/L (15-37); Alanine Aminotransfer ALT/SGPT 28 U/L (13-56); Albumin, Serum 3.6 g/dL (3.2-5.0); Alkaline Phosphatase 83 U/L (45-117); Anion Gap 7 (5-15); BUN 13 mg/dL (7-18); BUN/Creat Ratio 19.9 RATIO (10-20); Calcium,Total 9.1 mg/dL (8.5-10.1); Chloride 108 mmol/L (98-107); Creatinine, Serum 0.65 mg/dL (0.55-1.02); EST Glomerular Filtration Rate 111 mL/min (>60); Est Glom Filt Rate - Afr Amer 134 mL/min (>60); Estimated Creatinine Clearance 128.65 ml/min; Globulin 3.7 g/dL (2.2-4.2); Glucose 100 mg/dL (74-106); Potassium 3.5 mmol/L (3.5-5.1); Protein, Total 7.3 g/dL (6.4-8.2); Sodium Level 139 mmol/L (136-145)
[2020-09-04] MEDS: Ketorolac 15 MG/ML Vial IV (09:27)
[2020-09-04] MEDS: 0.9% Normal Saline 1,000 ML 1000 ML IV (09:27)
[2020-09-04] MEDS: Ondansetron 4 MG/2 ML Vial IV (09:28)
[2020-09-04 09:41] LABS: Color, Urine Amber (Yellow); Glucose, Dipstick Normal (Normal); Ketone-Dipstick 50 mg/dl (Negative); Leukocyte Esterase-Dipstick 500 /ul (Negative); Nitrite-Dipstick Positive (Negative); Occult Blood-Urine 250 /ul (Negative); Protein-Dipstick 100 mg/dl (Negative); Urine Bilirubin Dipstick Negative (Negative); Urine Clarity Sl. Cloudy (Clear); Urine Urobilinogen 1 mg/dl (Normal)
--- NOTE | 2020-09-04 09:46 | CT_ITS ---
STUDY: CT ABDOMEN AND PELVIS WITHOUT CONTRAST REASON FOR EXAM: Female, 35 years old. Bilateral flank pain. History of kidney stones. RADIATION DOSAGE (If Supplied By Facility): CTDIvol = ( 6.16 ) mGy, DLP = ( 323.26 ) mGycm TECHNIQUE: Transaxial images were obtained from the dome of the diaphragm to the symphysis pubis without oral contrast, and without intravenous contrast. Sagittal and coronal images were reconstructed. Individualized dose optimization techniques were used for this CT. COMPARISON: Comparison is made with prior study dated 11/14/2019. FINDINGS: The visualized lung bases are unremarkable. The visualized portions of the heart are within normal limits. Normal liver. Normal gallbladder and extrahepatic biliary system. Normal spleen. Normal pancreas. Normal bilateral adrenal glands. Increased density of the renal papilla in both kidneys suggestive of medullary sponge kidney. No intrarenal calculi are seen. There is no evidence of ureteral obstruction at this time. Normal visualized stomach. Normal small intestine. Normal colon. The appendix is visualized and appears normal. Normal abdominal aorta. Normal inferior vena cava. Normal retroperitoneum. Normal urinary bladder. Bilateral tubal ligation clips are seen. Normal abdominal wall. Normal osseous structures. 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 No evidence of urinary obstruction seen at this time. Electronically Signed: Aubrey Richey MD at 10:24 EDT , Service support ,
[2020-09-04 09:49] LABS: Bacteria 2+ /hpf (None Seen); Internal QC Validated? YES +Cl - CLEAR BKGD; Mucous, Urine 1+ /hpf (<or=2+); Pregnancy, Urine Negative Negative; Red Blood Cells-Urine 25-50 SEEN /hpf (0-5); Squamous Epithelial Cells - UA 0-5 SEEN /hpf (5-10); White Blood Cells 25-50 SEEN /hpf (0-5)
[2020-09-04] MEDS: Ceftriaxone 1 GM/50 ML BAG IV (10:21)
[2020-09-04 10:26] VITALS: BP 90/54; PULSE 58; RESP 16; TEMP 37; O2SAT 99
[2020-09-04 11:21] VITALS: PULSE 62
== END 2020-09-04 11:22 | disposition home or self-care (01) ==
LOC: ED 09:42
PROVIDERS: Emergency Provider Emergency Medicine; PCP Nurse Practitioner Family
DX: N12 Tubulo-interstitial nephritis, not specified as acute or chronic (principal); F17.210 Nicotine dependence, cigarettes, uncomplicated
CPT/HCPCS: 71045; 74176; 80053; 81001; 81025; 85025; 87086; 87088; 87186; 96365; 96375; 99285; J7050; A4216; J2405

== ENCOUNTER 2021-04-29 08:29 | Emergency (ER) | payer BC, MEDICAID, SELFPAY ==
[2021-04-29 08:29] VITALS: BP 119/58; PULSE 80; RESP 16; TEMP 36.4; O2SAT 100; BMI 21.4
--- NOTE | 2021-04-29 08:58 | ED.VIS.DENTA ---
HPI History of Present Illness Chief Complaint: Dental Informant: patient Narrative Narrative: 36-year-old female presenting to the emergency room with dental infection. Patient states that 10 days ago she was started on Augmentin for some mild left lower jaw facial swelling. She saw a dentist and they recommend that she have about 4-5 teeth extracted. But they needed her infection to be under control. Things were getting better but today she woke up and had more swelling along the left mandible. She notes the pain is tolerable. She is a smoker. [facility] Medical History History of renal stone Home Medications ondansetron 4 mg PO Q8H PRN PRN #10 tab 09/04/20 [Rx Last Taken Unknown] sulfamethoxazole-trimethoprim [Bactrim DS] 1 tab PO BID #14 tab 09/04/20 [Rx Last Taken Unknown] clindamycin HCl 300 mg PO 4X/DAY #80 capsule 04/29/21 [Rx Last Taken Unknown] ibuprofen 600 mg PO Q6H PRN PRN #20 tablet 04/29/21 [Rx Last Taken Unknown] Allergy/AdvReac Type Severity Reaction Status Date / Time No Known Allergies Allergy Verified 04/29/21 08:31 Surgical History History of tubal ligation Social History (Updated 04/29/21 @ 08:[address] Kirk Brannon DO) Smoking Status: Current every day smoker tobacco type: cigarettes substance use type: does not use ROS ROS ED Constitutional Constitutional ED: Denies chills, fever(s) or weight loss Eyes Eyes: Denies change in vision or diplopia ENT ENT ED: Reports other Details: Dental pain ; Denies ear pain, rhinorrhea or sore throat Cardiovascular Cardiovascular: Denies chest pain, orthopnea, palpitations or racing heartbeat Respiratory/Chest Respiratory/Chest: Denies cough, dyspnea or orthopnea Gastrointestinal Gastrointestinal: Denies abdominal pain, diarrhea, nausea or vomiting Genitourinary Genitourinary ED: Denies dysuria, hematuria or urinary frequency Musculoskeletal Musculoskeletal: Denies arthralgias or myalgias Integumentary Denies abscess or rash Neurologic Neurologic: Denies headache(s) or weakness Psychiatric Psychiatric: Denies anxiety, depression, suicidal ideation or suicidal thoughts Endocrine Endocrinology: Denies polydipsia, polyphagia or polyuria Allergic/Immunologic Allergic/Immunologic ED: Denies mouth swelling, tongue swelling or urticaria EXAM Physical Exam Const Vital Signs: 04/29/21 08:29 Temperature 97.6 F L Temperature Source Temporal Pulse Rate 80 Respiratory Rate 16 Blood Pressure 119/58 L Blood Pressure Mean 78 Pulse Ox 100 Oxygen Delivery Method Room Air Positive well nourished and well developed General Appearance ED: well developed HEENT Reports normocephalic, head/scalp atraumatic and moist mucous membranes HEENT Narrative: There are multiple teeth that are broken and decayed to the gumline. On the left mandible there is some facial swelling but no erythema. There is no trismus. I don't appreciate any obvious abscess along the gumline. Mouth ED: Yes tongue normal and Yes salivary gland normal Mouth: tongue normal and salivary gland normal Throat: posterior oropharynx normal Eyes PERRL and EOMs intact bilaterally Neck no lymphadenopathy, supple and no JVD Resp normal respiratory effort and clear to auscultation bilaterally Cardio regular rate, regular rhythm and no murmurs GI normal to inspection, nondistended, normoactive bowel sounds and non-tender Palpation: soft Back/Spine no CVA tenderness and normal ROM Extremity normal to inspection General Extremety ED: Negative for edema General Extremity: Negative for edema Neuro oriented x3 and CN's II-XII intact bilaterally Sensorium / Orientation: alert Motor Exam: strength 5/5 throughout Psych mental status grossly normal Mood & Affect: Negative for depressed or tearful Skin no rashes or lesions noted and no wounds MDM MDM MDM Narrative Medical decision making narrative: Patient will be started on anti-inflammatories as well as clindamycin. Patient received return instructions notes understanding. Discharge Plan Triage Chief Complaint: Dental ED Provider: Kirk Brannon Dx/Rx/DC Orders Clinical Impression: Abscess, dental Instructions: ED Dental Abscess Prescriptions: New clindamycin HCl 150 MG capsule 300 mg PO 4X/DAY Qty: 80 RF: 0 ibuprofen 600 MG tablet 600 mg PO Q6H PRN PRN (Reason: pain) Qty: 20 RF: 0 No Action sulfamethoxazole-trimethoprim [Bactrim DS] 800-160 mg tablet 1 tab PO BID Qty: 14 RF: 0 ondansetron [ondansetron] 4 MG tablet 4 mg PO Q8H PRN PRN (Reason: Nausea) Qty: 10 RF: 0 Primary Care Provider: Grant Garrido NP Referrals: Grant Garrido NP, [employer]ATION PROJECT MANAGER-[employer] [Primary Care Provider] - Activity Restrictions/Additional Instructions: Please see dentistry as soon as possible Disposition Disposition: Home, Self Care
== END 2021-04-29 09:14 | disposition home or self-care (01) ==
LOC: ED 09:01
PROVIDERS: Emergency Provider Emergency Medicine; PCP Nurse Practitioner Family; Visit Provider Emergency Medicine
DX: K04.7 Periapical abscess without sinus (principal); F17.210 Nicotine dependence, cigarettes, uncomplicated
CPT/HCPCS: 99282

== ENCOUNTER 2022-02-12 07:13 | Emergency (ER) | payer BC, MEDICAID, SELFPAY ==
[2022-02-12 07:14] VITALS: BP 119/76; PULSE 71; RESP 12; TEMP 36.8; O2SAT 98; BMI 19.3
[2022-02-12] MEDS: Amox/Clavulanate 875 MG Tablet PO (08:24)
--- NOTE | 2022-02-12 09:13 | EDS_ITS ---
HPI History of Present Illness Chief Complaint: Dental Narrative Narrative: 36-year-old female presenting with dental swelling in the left lower mandible. She states this is a chronic issue and this is acutely flared up. She states she saw her oral surgeon in December and was put on amoxicillin at that point. She states she had been doing well but notes last couple days she had some swelling in the area of the left side of her mandible. She states that she has a history of dental caries here as well as a dental fracture. She reports that her surgeon wants to remove these teeth but she cannot have surgery until April. She states he is on a wait list to try to get in early. She denies any pain. No fevers, chills. She does not have any difficulty swallowing or breathing. [facility] Medical History History of renal stone Home Medications ondansetron 4 mg disintegrating tablet 4 mg PO Q8H PRN PRN Nausea #10 tabs 09/04/20 [Rx Last Taken Unknown] sulfamethoxazole 800 mg-trimethoprim 160 mg tablet (Bactrim DS) 1 tab PO BID #14 tabs 09/04/20 [Rx Last Taken Unknown] clindamycin HCl 150 mg capsule 300 mg PO 4X/DAY #80 CAPSULES 04/29/21 [Rx Last Taken Unknown] ibuprofen 600 mg tablet 600 mg PO Q6H PRN PRN pain #20 TABLETS 04/29/21 [Rx Last Taken Unknown] amoxicillin 875 mg-potassium clavulanate 125 mg tablet 1 tab PO BID #20 tabs 02/12/22 [Rx Last Taken Unknown] Allergy/AdvReac Type Severity Reaction Status Date / Time No Known Allergies Allergy Verified 02/12/22 07:14 Surgical History History of tubal ligation Social History Smoking Status: Current every day smoker tobacco type: cigarettes substance use type: does not use EXAM Physical Exam Const Vital Signs: 02/12/22 07:14 Temperature 98.2 F Temperature Source Temporal Pulse Rate 71 Respiratory Rate 12 Blood Pressure 119/76 Blood Pressure Mean 90 Pulse Ox 98 Oxygen Delivery Method Room Air Positive well nourished General Appearance ED: NAD HEENT HEENT Narrative: Multiple dental caries. Most notably between teeth 19 through 21 on the left. There is some gingival swelling here. The buccal mucosa is normal. No sublingual edema. Tongue is not swollen. Oropharynx patent without stridor. Trismus. He associated the external swelling of the left jawline is adjacent to the teeth. No fluctuance. Eyes PERRL and EOMs intact bilaterally Neck General: normal visual inspection Resp normal respiratory effort Cardio regular rate and regular rhythm GI normal to inspection, nondistended, normoactive bowel sounds Neuro oriented x3 and CN's II-XII intact bilaterally Sensorium / Orientation: alert Psych mental status grossly normal Skin no rashes or lesions noted MDM MDM MDM Narrative Medical decision making narrative: Patient with dental caries and chronic dental infection secondary to broken t eeth and dental decay. Patient states this is an acute flareup. She states that she was on amoxicillin before and her oral surgeon told her she needed a second antibiotic to be placed on Augmentin. This was provided for her. She states she does not have any pain. She is not having any difficulty swallowing or breathing. I will give her first dose of Augmentin here. She is to make follow-up with her oral surgeon. Return precautions discussed. Impression: 1. Dental abscess 2. Dental caries Lab Data Attestation: I reviewed the patient's lab results. Discharge Plan Triage Chief Complaint: Dental ED Provider: Alonso Hilton Dx/Rx/DC Orders Instructions: Dental Abscess Prescriptions: New amoxicillin-pot clavulanate 875-125 mg tablet 1 tab PO BID Qty: 20 0RF No Action sulfamethoxazole-trimethoprim [Bactrim DS] 800-160 mg tablet 1 tab PO BID Qty: 14 0RF ondansetron [ondansetron] 4 MG tablet 4 mg PO Q8H PRN PRN (Reason: Nausea) Qty: 10 0RF clindamycin HCl 150 MG capsule 300 mg PO 4X/DAY Qty: 80 0RF ibuprofen 600 MG tablet 600 mg PO Q6H PRN PRN (Reason: pain) Qty: 20 0RF Primary Care Provider: Grant Garrido NP Referrals: Grant Garrido NP, SENIOR PRODUCT DEVELOPMENT SCIENTIST-C [Primary Care Provider] - Disposition Disposition: Home, Self Care Discharge Date/Time: 02/12/22 08:24
== END 2022-02-12 08:24 | disposition home or self-care (01) ==
PROVIDERS: Emergency Provider Student in an Organized Health Care Education/Training Program; PCP Nurse Practitioner Family; Visit Provider Student in an Organized Health Care Education/Training Program
DX: K04.7 Periapical abscess without sinus (principal); K02.9 Dental caries, unspecified; F17.210 Nicotine dependence, cigarettes, uncomplicated
CPT/HCPCS: 99283